=== PATIENT | male | born 1970 | race Caucasian/White ===

== ENCOUNTER → 2023-04-24 08:45 | Outpatient (BNVA) | payer OTHER, SELFPAY | PROVIDERS: Referring Provider Nurse Practitioner; Visit Provider Orthopaedic Surgery | DX: M75.82 Other shoulder lesions, left shoulder (principal) | CPT/HCPCS: 73030; 99203 ==

== ENCOUNTER → 2023-07-02 08:17 | Outpatient (BNVA) | payer OTHER, SELFPAY | PROVIDERS: Visit Provider Student in an Organized Health Care Education/Training Program | DX: M19.012 Primary osteoarthritis, left shoulder; M75.42 Impingement syndrome of left shoulder; Z98.890 Other specified postprocedural states | CPT/HCPCS: 20610; 73030; 99213; J3301 ==

== ENCOUNTER → 2023-09-05 10:01 | Outpatient (BNVA) | payer OTHER, SELFPAY | PROVIDERS: Visit Provider Physician Assistant | DX: M75.42 Impingement syndrome of left shoulder (principal); M75.22 Bicipital tendinitis, left shoulder | CPT/HCPCS: 99214 ==

== ENCOUNTER 2023-10-09 06:44 | Day surgery (SDC) | payer OTHER, SELFPAY ==
[2023-10-09] VITALS (17 sets, daily range): BP systolic 122–150; BP diastolic 75–103; PULSE 67–85; RESP 13–24; TEMP 36.1–36.7; O2SAT 90–98; BMI 39.0
--- NOTE | 2023-10-09 07:48 | ANES.PREANE2 ---
Pre-Anesthetic Assessment Height/Weight: Height 1.8 m Temp Pulse Resp BP Pulse Ox O2 Del Method 97.0 F L 81 18 147/103 96 Room Air 10/09/23 07:32 10/09/23 07:32 10/09/23 07:32 10/09/23 07:32 10/09/23 07:32 10/09/23 07:34 Operation Date: 10/09/23 08:55 Proposed Procedures p AC Joint Resection Acromioclavicular Joint Resection(Left) - Ty Nobles, DO s Bicep Tenotomy(Left) - Ty Marilyn, DO s Subacromial Decompression(Left) - Ty Nobles, DO Familial anesthetic complications: None Was Beta Chester taken within 24 hours: N/A Was Clonidine taken within 24 hours: N/A Last intake: Intake Last Liquid Date 10/08/23 Last Liquid Time 20:00 Last Solid Date 10/08/23 Last Solid Time 20:00 Social No alcohol and No tobacco Exam alert, oriented x 3, clear to auscultation bilaterally and regular rate & rhythm Airway Mallampati: Class III Dentition: chipped Metabolic Morbid Obesity Anesthetic Plan ASA status: 2 Anesthesia: General and Regional (specify below) Risk of > 500 ml blood loss (7ml/kg in children): No Medications/Allergies Home Medications Medication Instructions Recorded Confirmed Last Taken Type ibuprofen 200 mg capsule 200 mg PO Q6H PRN Pain 07/02/23 10/08/23 Unknown History allopurinol 300 mg PO DAILY 10/09/23 10/09/23 09/11/23 History Allergies Allergy/AdvReac Type Severity Reaction Status Date / Time barium dye Allergy ADR-Nausea Uncoded 10/09/23 07:27 [facility] Anesthesia Social History (Updated 09/05/23 @ 11:46 by Ana Guevara LPN) Smoking and tobacco/nicotine status: former use of tobacco/nicotine Alcohol intake: current Alcohol intake frequency: few times a month Data Anesthesia Cardiac Studies: No Data to Display
[2023-10-09] MEDS: sodium chloride 0.9% 1,000 ML 30 ML IV (07:53)
[2023-10-09] MEDS: ketorolac 30 mg/mL INJ IVP (07:55)
[2023-10-09] MEDS: acetaminophen 1,000 MG/100 ML PIGGYBACK 400 MG IV (07:56)
[2023-10-09] MEDS: scopolamine 1.5 Patch 1 PATCH TRANSDERMA (08:02)
--- NOTE | 2023-10-09 08:19 | ANES.PROC ---
Anesthesia Procedures Procedure/Date: 10/09/23 Nerve Block ^: Nerve Block 1: Main Anesthesia: general anesthesia Time Out Performed: Yes Consent: requested by attending/covering physician, from patient, from other, risks and benefits reviewed and patient agrees to proceed Nerve block location: interscalene (L) Anesthesia monitors applied: pulse oximetry, EKG and BP cuff Nerve block position: semi sitting Anesthetic Used: ropivicaine 0.5% (20 ml) and with decadron (3 mg) Ultrasound used to: recognize landmarks, visualize and ID brachial plexus, in supraclavicular region and visualize and ID interscalene groove Nerve Stimulator Used?: No Interscalene/Femoral BLK: 2 stimuplex 22 g needle used for position and inplane approach, visualize local anesthetic spread and no vascular puncture identified Patient Tolerated Procedure: well Complications: none
--- NOTE | 2023-10-09 08:19 | SUR.PREOP ---
LEFT INTERSCALENE NERVE BLOCK PERFORMED . PT ON MONITOR. TOLERATED PROCEDURE WELL.
--- NOTE | 2023-10-09 08:55 | P.HP_ITS ---
Same Day Surgery H&P Indication for Procedure/HPI DATE OF PROCEDURE: October 09, 2023 CHIEF COMPLAINT/INDICATIONFOR SURGICAL PROCEDURE: Left shoulder pain, AC joint arthritis, subacromial impingement, rotator cuff tendinitis PREOP DIAGNOSIS: Left shoulder AC joint arthritis, subacromial impingement rotator cuff tend PLANNED PROCEDURE: Operation Date: 10/09/23 08:55 Proposed Procedures p AC Joint Resection Acromioclavicular Joint Resection(Left) - Ty Marilyn, DO s Bicep Tenotomy(Left) - Ty Licking, DO s Subacromial Decompression(Left) - Ty Licking, DO Medications/Allergies* Home Medications Medication Instructions Recorded Confirmed Type ibuprofen 200 mg capsule 200 mg PO Q6H PRN Pain 07/02/23 10/08/23 History allopurinol 300 mg PO DAILY 10/09/23 10/09/23 History Allergies/Adverse Reactions Allergy/AdvReac Type Severity Reaction Status Date / Time barium dye Allergy ADR-Nausea Uncoded 10/09/23 07:27 Current Medications: Generic Name Dose Route Start Last Admin Trade Name Freq PRN Reason Stop Dose Admin Sodium Chloride 1,000 mls @ 30 mls/hr 10/09/23 07:30 10/09/23 07:53 Sodium Chloride 0.9% IV 10/10/23 07:29 30 mls/hr .Q24H LOREN Administration Pertinent History/Comorbid Conditions* Social History Smoking and tobacco/nicotine status: former use of tobacco/nicotine Alcohol intake: current Alcohol intake frequency: few times a month Pertinent Exam Findings alert, oriented x 3, operative site marked and procedure specific exam findings Left shoulder exam: ROM: decreased active ROM secondary to pain TTP AC joint, anterior and laterally. Tenderness over biceps tendon intertubercular groove With elbows at the side 5 out of 5 strength with internal and external rotation O'Briens: positive Jobes: pain with give way weakness Whitlock Impingement:positive Speeds Test:positive Crossover/Neers test: positive Recommendations Surgery/Procedure today Other Plans: Plan to proceed with left shoulder diagnostic shoulder diagnostic and surgical arthroscopy with acromioclavicular joint resection, biceps tenotomy versus tenodesis, subacromial decompression possible rotator cuff repair. Patient understands agrees with current plan. All questions answered. Coding Level of Care Code Acute Code for Chg Fwd Diagnoses
[2023-10-09] MEDS: ceFAZolin 2,000 MG in sodium chloride 0.9% (plus) 50 ML 100 MG IV (10:15)
--- NOTE | 2023-10-09 11:40 | ANE.PACU2 ---
Inpatient post-anesthesia follow up: Airway intact: Yes Vital signs: Temperature 97.6 F Pulse Rate 83 Respiratory Rate 16 Blood Pressure 138/85 Pulse Oximetry 95 Oxygen Delivery Me thod Nasal Cannula Oxygen Flow Rate 3 Fraction of Inspir ed Oxygen Hydration adequate: Yes Nausea and vomiting: No Pain level: 1 Mental status: Baseline
--- NOTE | 2023-10-09 12:08 | W.PM.BPON ---
Date of Procedure: 10/09/2023 Surgeon: Ty Sanders DO Patient Accounts Specialist(s): Juma Sanders PA-C Procedure(s) performed: Left shoulder diagnostic and surgical arthroscopy biceps tenotomy Left shoulder diagnostic and surgical arthroscopy rotator cuff repair (medium) Left shoulder diagnostic and surgical arthroscopy labral debridement Left shoulder diagnostic and surgical arthroscopy subacromial decompression (bursectomy and acromioplasty) Left shoulder diagnostic and surgical arthroscopy AC joint resection (distal clavicle excision) Findings of the procedure(s): Patient a Underwent left shoulder diagnostic and surgical arthroscopy found to have him size rotator cuff tear patient underwent left shoulder diagnostic and surgical arthroscopy and procedure went as planned without any issues or complications Estimated blood loss: 10 cc Specimen(s) removed: None Post-operative diagnosis: Left shoulder rotator cuff tear, bicep tendon tear/labral tearing, AC joint arthritis, subacromial impingement
--- NOTE | 2023-10-09 12:11 | P.OP_ITS ---
Operative Report Date of procedure: October 09, 2023 Surgeon: Ty Sanders DO Podiatrist Orthopedic: Juma Sanders PA-C: PA was necessary for assistance in this case with instrumentation arm positioning as well as assistance with rotator cuff repair and instrumentation and implants, closing as well as dressing and sling application Procedure: Preoperative diagnosis: Left shoulder pain Left shoulder AC joint arthritis Left shoulder rotator cuff tendinitis/impingement syndrome Post-op diagnosis:? Left?shoulder?labral tear Left?shoulder?biceps tendon tear Left?shoulder?rotator cuff tear Left?shoulder?AC joint arthritis Left?shoulder?subacromial bursitis/impingement Procedure done: Left?shoulder?diagnostic and surgical arthroscopy with arthroscopic rotator cuff repair(medium) Left?shoulder?diagnostic and surgical arthroscopy biceps tenotomy Left?shoulder?diagnostic and surgical arthroscopy labral debridement Left?shoulder?diagnostic and surgical arthroscopy acromioclavicular joint resection Left?shoulder?diagnostic and surgical arthroscopy subacromial decompression (acromioplasty and bursectomy) Surgeon: Ty Sanders DO Estimated blood loss: [10]mL IV fluids: See anesthesia record Implants: Arthrex 4.75 swivel lock x2 Arthrex?scorpion and suture tape Complications: None Condition: stable Disposition: same day Brief History: Patient been seen and worked up in the outpatient setting for Left?shoulder?pain.? Pt had an MRI Showed AC joint arthritis, distal supraspinatus tendon tendinosis. Patient's failed conservative treatment and has weakness. Patient's failed therapy and cortisone injection.? We talked about treatment options far as nonoperative and operative intervention..? We talked about risk benefits complication alternatives surgical nonsurgical treatment options.? Understanding risk of surgery pt agrees to proceed with surgical intervention.? All questions have been answered at this time.? Patient elects proceed with surgery and consent obtained in office. Procedure: Patient seen evaluated in the preoperative holding area.? Consent reviewed and signed with patient.? Once again reviewed patient's MRI results as well as? planned surgical intervention.? Correct extremity marked.? Patient seen evaluated by anesthesia department received regional anesthesia.? Once ready for surgery was taken back to the operative suite.? Patient then subsequently underwent anesthesia per the anesthesia department was transported onto the OR table.? Patient was then placed into a lateral decubitus position with a beanbag and was appropriately secured to the bed.? All bony prominences well-padded.? Patient then had the Left upper extremity was then prepped and draped in standard orthopedic fashion.? Patient received appropriate preoperative antibiotics.? Final timeout performed. The Left upper extremity was then held in hanging from traction utilizing sterile technique.? Next started with standard diagnostic and surgical arth roscopy with posterior portal position introduced arthroscope into the glenohumeral joint.? Visualized the glenohumeral joint I then introduced a spinal needle within the rotator cuff interval to confirm appropriate anterior portal placement.? Once this was confirmed I then made my small incision and then introduced my arthroscopic shaver into the glenohumeral joint.? After thorough debridement was clearly evident patient had a significant erythema as well as positive liftoff sign of the biceps anchor and biceps tendon tear as it was pulled within the joint.? Decision at this time was made to perform a biceps tenotomy.? Introduced a thermal wand and a biceps tenotomy was performed to completion With appropriate release.? Next I evaluated the subscapularis tendon which was intact and no evidence of tear. ?Next there was significant labral tearing at biceps anchor and circumferential.? ? I then subsequently utilized a a arthroscopic shaver and thermal wand to perform a labral debridement.? This point time I then visualized the glenohumeral joint.? The glenohumeral joint was found to have grade 1-2? chondromalacia throughout.? Infrapatellar pouch was free of loose bodies from viewing the posterior portal.? Next a visualized the rotator cuff superiorly and there was found to be a full-thickness supraspinatus anterior portion rotator cuff tear retracted to the glenohumeral joint. I utilized a spinal needle to karolina this location.? ?This completed my work within the glenohumeral joint all fluid was suctioned free of the joint.? ?Next I reintroduced the arthroscope posteriorly.? And went to the subacromial space.? I established my lateral working portal at the site of which my spinal needle was marking of the rotator cuff tear.? Thermal wand was then introduced laterally and then I subsequently performed extensive bursectomy of the subacromial space.? Patient had a large anterior bone spur.? At this point time I proceeded with my AC joint resection thermal wand was used and track to the anterior edge of the acromion and then tracked all the way to the AC joint.? Once identified the AC joint this was very arthritic in nature.? Thermal wand was placed anteriorly to establish appropriate plane for AC joint resection.? Once appropriate margins and anterior inferior and anterior capsule was released I then introduced arthroscopic shaver and a bur and performed AC joint resection of both the acromion to cope plane at the AC joint and a distal clavicle resection was then performed totaling 1 cm in size and was confirmed.? This completed my AC joint resection and I then introduced the arthroscopic shaver laterally while continuing to view posteriorly.? I then performed an acromioplasty to complete my subacromial decompression prior to fixing the rotator cuff tear.? Next the arthroscopic shaver was then used previous spinal needle spot that is marked the full-thickness tear.? Given the medium size I planned for a single medial row and single lateral row repair configuration. .? At this point in time and then introduced a shaver to debride the rotator cuff footprint and decorticate the footprint in preparation for repair, next I marked by swivel lock position. I made accessory portal to have appropriate man's angle directly perpendicular on the medial footprint just off the articular margin which had been decorticated and prepped, a 4.75 mm Arthrex swivel lock loaded anchor with suture tape and FiberWire was then impacted and had excellent fixation. I then individually passed to suture tapes and 2 FiberWire through the rotator cuff from anterior to posterior fashion these were all subsequently then loaded fiber tape was then loaded into a 4.75 swivel lock I then subsequently punched and then subsequently placement 4.75 swivel lock while maintaining appropriate tension and repair of rotator cuff and this was advanced with excellent fixation I then had a final confirmation of appropriate repair of the supraspinatus rotator cuff tendon tear.? Sutures were then cut with an arthroscopic suture cutter and subsequently evaluated the rotator cuff repair.? Repair was found to be satisfactory?shoulder?was taken through range of motion and the repair moved as a unit with no evidence of loss of fixation. ?I then switched the arthroscope to the lateral portal to confirm this tension- free repair.? I took the?shoulder?through range of motion and the rotator cuff repair was stable and moved as a unit. ?Next I then introduced the arthroscopic shaver posteriorly to complete my subacromial decompression appropriate complaining all the way up to the lateral edge of the acromion.? This completed the surgery.? All fluid was suctioned from the?shoulder.? All instruments were removed.? The lateral incision was then closed with nylon stitches.? As well as the portal sites closed with portal nylon stitches.? Xeroform 4 x 4's ABD and tape was then applied to the Left?shoulder?and was placed into a?shoulder?abduction pillow sling for rotator cuff repair.? Patient was then awakened from anesthesia and then taken back to PACU in stable condition.? Patient tolerated procedure without any issues. Disposition: Patient taken back in stable condition recovering well.? Dressings on in place clean dry and intact.? Will be nonweightbearing to the Left upper extremity.? Follow rotator cuff repair protocol.? Patient to follow-up with me in the office in 2 weeks.? Patient will receive appropriate discharge instruction as well as pain medication postoperatively.? All questions answered.? We will contact the office for any questions or concerns.
--- NOTE | 2023-10-09 12:45 | PM.PACU ---
PACU note Narrative: Patient is a 53-year-old male that just underwent a left shoulder surgical diagnostic arthroscopy procedure. Patient transferred to PACU in stable condition. Pain is well controlled. shoulder Dressing on , dry and in place. Patient's operative arm is in a shoulder immobilizer. Patient's fingers are warm with good perfusion. Normal cap refill under 2 seconds. Unable to assess further range of motion in arm due to sling. Unable to assess sensation or motor due to residual localized anesthetic. Exam: unarousable Disposition: discharged
--- NOTE | 2023-10-09 13:03 | PC.NURSE ---
1302 - nasal trumpet removed - simple mask at [address]
--- NOTE | 2023-10-09 13:24 | PC.NURSE ---
1316 - pt complaining of mid sternal chest pain of 05/04 - notified Dr Falk - 1521 - Dr Falk at bedside - new orders rec'd - RT notified of need for EKG
--- NOTE | 2023-10-09 13:32 | PC.NURSE ---
1331 - rt at side to do ekg - pt continues to deny chest pain at present time
--- NOTE | 2023-10-09 13:33 | ECG_ITS ---
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 Measurements Intervals [place] Rate: 80 P: -20 ID: 162 QRS: 91 QRSD: 102 T: 4 QT: 385 QTc: 445 Interpretive Statements SINUS RHYTHM WITH OCCASIONAL VENTRICULAR PREMATURE COMPLEXES BORDERLINE RIGHT AXIS DEVIATION [QRS AXIS > 90] POSSIBLE INFERIOR MYOCARDIAL INFARCTION , PROBABLY OLD [30 ms Q WAVE IN II/aVF] No previous ECG available for comparison Electronically Signed On 10-09-2023 15:12:07 SALES DEVELOPMENT REPRESENTATIVE by Jose Pang M.D. [id number]
--- NOTE | 2023-10-09 13:36 | PC.NURSE ---
ekg results called to Dr Dileep LINDSAY to move pt to phase 2
== END 2023-10-09 15:00 | disposition home or self-care (01) ==
PROVIDERS: PCP Nurse Practitioner; Visit Provider Student in an Organized Health Care Education/Training Program
PROC: 0RSH0ZZ Reposition Left Acromioclavicular Joint, Open Approach (ICD-10-PCS; CPT 29824; principal; 2023-10-09 08:55)
PROC: (CPT 23405; 2023-10-09 08:55)
PROC: (CPT 29826; 2023-10-09 08:55)
PROC: 0LQ24ZZ Repair Left Shoulder Tendon, Percutaneous Endoscopic Approach (ICD-10-PCS; CPT 29827; 2023-10-09 08:55)
DX: S43.402A Unspecified sprain of left shoulder joint, initial encounter (principal); S46.112A Strain of muscle, fascia and tendon of long head of biceps, left arm, initial encounter; X58.XXXA Exposure to other specified factors, initial encounter; M75.102 Unspecified rotator cuff tear or rupture of left shoulder, not specified as traumatic; M19.012 Primary osteoarthritis, left shoulder; M25.812 Other specified joint disorders, left shoulder; Z87.891 Personal history of nicotine dependence
CPT/HCPCS: 29824; 29826; 29827; 29828; 93005; C1713; J0131; J0690; J1100; J1170; J1885; J2250; J2405; J2704; J2710; J2795; J3010; J3490; J7030

== ENCOUNTER → 2023-10-29 09:29 | Outpatient (BNVA) | payer OTHER, SELFPAY | PROVIDERS: PCP Nurse Practitioner; Visit Provider Student in an Organized Health Care Education/Training Program | DX: Z98.890 Other specified postprocedural states; M25.512 Pain in left shoulder | CPT/HCPCS: 73030; 99024 ==

== ENCOUNTER → 2023-11-26 10:26 | Outpatient (BNVA) | payer OTHER, SELFPAY | PROVIDERS: PCP Nurse Practitioner; Visit Provider Student in an Organized Health Care Education/Training Program | DX: Z98.890 Other specified postprocedural states (principal) | CPT/HCPCS: 99024; 99213 ==

== ENCOUNTER 2024-02-18 15:07 | Emergency (ER) | payer OTHER, SELFPAY ==
[2024-02-18 15:26] VITALS: BP 157/82; PULSE 98; RESP 16; TEMP 36.4; O2SAT 97; BMI 37.0
--- NOTE | 2024-02-18 15:29 | XR_ITS ---
WS: [id number] Exam: XR knee LT 3V* [id number] Date/Time of Exam: 02/18/2024 3:32 PM Reason For Exam: pain No fracture or dislocation. Spurring of the tibial spines and posterior patella. No joint effusion id entified. Mild degenerative narrowing of the medial joint compartment. IMPRESSION: 1. Degenerative changes noted. 2. No fracture or joint effusion.
--- NOTE | 2024-02-18 15:30 | ED_ITS ---
HPI - Extremity Problem General: Chief complaint: Extremity Problem,Nontraumatic Stated complaint: left knee pain Time Seen by Provider: 02/18/24 15:09 Source: patient Mode of arrival: ambulatory (with use of a cane) Limitations: no limitations History of Present Illness: Patient is a 53-year-old male who presents to the ED today with a complaint of left knee pain and swelling. Patient states he said pain to the posterior aspect of his knee approximately 3 weeks and feels like the area is swollen. He states just recently he began feeling like the pain moved anteriorly and feels like it is swollen as well. No known injury or trauma. States he is ambulatory with the help of his cane. Patient underwent surgery for his shoulder a few months ago and had a ortho follow-up today. He states he has never spoke to them in regards to his knee stating I figured I had to have [facility] . Denies SOB/chest pain. MD Complaint: joint swelling and joint pain Onset (ago): week(s) Pain Consistency: constant Location: left and lower extremity Radiation: none Relieving factors: immobilization Exacerbating factors: range of motion, weight bearing and walking Associated symptoms: Reports no associated symptoms; Deny chest pain or fever(s) Review of Systems Const: Denies: fever(s) Card: Denies: chest pain Resp: Denies: dyspnea Musc: Reports: joint pain (L knee) and joint swelling (L knee); Denies: joint redness or joint warmth Neuro: Reports: difficulty walking (secondary to L knee pain); Denies: numbness in extremities, weakness in extremities or sensory changes [facility] ED PFSH: Social History Smoking and tobacco/nicotine status: former use of tobacco/nicotine Alcohol intake: current Alcohol intake frequency: few times a month Physical Exam Const: COMMON NORMALS: no acute distress, patient oriented x3, no limitations, alert and well nourished GENERAL APPEARANCE: cooperative NUTRITIONAL APPEARANCE: overweight Resp: COMMON NORMALS: normal respiratory effort Cardio: COMMON NORMALS: regular rate and regular rhythm RATE: regular rate RHYTHM: regular rhythm Extremity: COMMON NORMALS: capillary refill normal and no calf tenderness NARRATIVE EXTREMITY EXAM: chronic bilateral symmetrical edema-wearing compression stockings LEFT LOWER EXTREMITY: Yes knee joint (TTP/swelling noted posteriorly) Left knee: Yes ROM (fairly normal ROM apart from some limitations secondary to swelling) and Yes neurovascular exam (normal) Neuro: COMMON NORMALS: patient oriented x3, moves all extremities, no focal motor deficits and no sensory deficits noted SENSORIUM/ORIENTATION: Yes alert Skin: COMMON NORMALS: no rashes or lesions noted GENERAL SKIN EXAM: no rashes or lesions noted Course Vital Signs: Vital signs: Vital Signs Temperature 97.6 F 02/18/24 15:26 Pulse Rate 98 02/18/24 15:26 Respiratory Rate 16 02/18/24 15:26 Blood Pressure 157/82 02/18/24 15:26 Pulse Oximetry 97 02/18/24 15:26 Oxygen Delivery Me thod Room Air 02/18/24 15:26 MDM - Extremity (Nontraumatic) Medical Decision Making XR showing degenerative changes. Prelim report from maintenance technician 2nd shift negative for Ochoa's cyst/DVT. Patient will be given steroids and recommend [facility] and management which could include physical therapy and/or MRI. Medical Records I reviewed the patient's medical records. All radiology interpretation(s) finalized by discharge Discharge Plan Discharge Patient Disposition: Home Clinical Impression: Left knee pain Qualifiers: Chronicity: acute Qualified Code(s): M25.562 - Pain in left knee Condition: Stable Prescriptions: New prednisone 10 mg tablet 10 mg PO DAILY 6 Days Qty: 20 0RF Rx Instructions: Take 5 tabs on day 1-2, 4 tabs on day 3, 3 tabs on day 4, 2 tabs on day 5, and 1 tab on day 6 No Action ibuprofen 200 mg capsule 200 mg PO Q6H PRN (Reason: Pain) allopurinol tablet 300 mg PO DAILY Discharge Orders: Discharge ED (Routine); Ordered 02/18/24 Ordered By: Viktoria Easton Referrals: Kimberlee Davila FNP [Primary Care Provider] - Activity Restrictions/Additional Instructions: As we discussed please [facility] for [facility] and management of your [facility] pain. Coding Level of Care Code ED Leather Dresser for Terence Villanueva
--- NOTE | 2024-02-18 15:43 | USR_ITS ---
PROCEDURE INFORMATION: Exam: US Duplex Left Lower Extremity Veins, Limited Exam date and time: 02/18/2024 4:03 PM Age: 53 years old Clinical indication: Pain; Leg, lower; Left; Additional info: Posterior knee pain; Swelling; R/O dvt and bakers TECHNIQUE: Imaging protocol: Real-time duplex ultrasound of the left extremity with 2-D rivera scale, color Doppler flow and spectral waveform analysis including responses to compression and other maneuvers (when performed) with image documentation. Limited exam focused on the left lower extremity veins. COMPARISON: CR XR knee LT 3V* [id number] 02/18/2024 3:36 PM FINDINGS: Left deep veins: Unremarkable. The common femoral, femoral, proximal profunda femoral, popliteal, posterior tibial and peroneal veins are patent without thrombus. Normal compressibility, augmentation response and Doppler waveforms. Superficial veins: Greater saphenous vein at the saphenofemoral junction is patent without thrombus. Soft tissues: Unremarkable. US/[place] [id number] IMPRESSION: No sonographic evidence of deep vein thrombosis.
== END 2024-02-18 16:39 | disposition home or self-care (01) ==
PROVIDERS: Emergency Provider Physician Assistant; PCP Nurse Practitioner
DX: M17.12 Unilateral primary osteoarthritis, left knee (principal); M25.562 Pain in left knee; Z98.890 Other specified postprocedural states; Z87.891 Personal history of nicotine dependence
CPT/HCPCS: 73562; 93971; 99213; 99284

== ENCOUNTER 2024-02-20 15:06 | Emergency (ER) | payer OTHER, SELFPAY ==
[2024-02-20] VITALS (7 sets, daily range): BP systolic 132–157; BP diastolic 79–86; PULSE 89–99; RESP 16; TEMP 36.4; O2SAT 95–98
--- NOTE | 2024-02-20 15:25 | ECG_ITS ---
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 Measurements Intervals [place] Rate: 90 P: 57 CT: 128 QRS: 90 QRSD: 102 T: -17 QT: 356 QTc: 436 Interpretive Statements SINUS RHYTHM NONSPECIFIC ST & T-WAVE ABNORMALITY Compared to ECG 10/09/2023 13:33:46 T-wave abnormality now present Ventricular premature complex(es) no longer present Myocardial infarct finding no longer present Electronically Signed On 02-20-2024 16:13:25 CDT by Thomas Kelly M.D. [id number]
--- NOTE | 2024-02-20 15:25 | XRR_ITS ---
PROCEDURE INFORMATION: Exam: XR Chest Exam date and time: 02/20/2024 3:56 PM Age: 53 years old Clinical indication: Pain; Angina pectoris; Additional info: Cp TECHNIQUE: Imaging protocol: Radiologic exam of the chest. Views: 1 view. COMPARISON: CR XR shoulder LT min 2V* [id number] 10/29/2023 9:44 AM FINDINGS: Lungs: Unremarkable. No consolidation. Pleural spaces: Unremarkable. No pleural effusion. No pneumothorax. Heart/Mediastinum: Unremarkable. No cardiomegaly. Bones/joints: Unremarkable. XR/XR chest 1V portable [id number] IMPRESSION: No acute findings.
--- NOTE | 2024-02-20 15:36 | ED_ITS ---
HPI - Chest Pain 2 General: Chief Complaint: Chest Pain Stated Complaint: chest pains Time Seen by Provider: 02/20/24 15:33 History of Present Illness: 53-year-old male with a history of gout and obesity who presents the emergency room from the [place] clinic with shortness of breath and some chest symptoms. He says this has been going off and on for about a month. He says can be somewhat exertional. He has no history of hypertension. No diabetes. No heart disease. His clinic provider was concerned that he might have a heart blockage so sent him to the emergency room. No cough. No edema. No abdominal pain. No nausea or vomiting. Review of Systems 2 Narrative: Constitutional symptoms: Negative except as documented in HPI. Skin symptoms: Negative except as documented in HPI. Eye symptoms: Negative except as documented in HPI. ENMT symptoms: Negative except as documented in HPI. Respiratory symptoms: Negative except as documented in HPI. Cardiovascular symptoms: Negative except as documented in HPI. Gastrointestinal symptoms: Negative except as documented in HPI. Genitourinary symptoms: Negative except as documented in HPI. Musculoskeletal symptoms: Negative except as documented in HPI. Neurologic symptoms: Negative except as documented in HPI. Psychiatric symptoms: Negative except as documented in HPI. Endocrine symptoms: Negative except as documented in HPI. PFSH ED 2 PFSH: Social History Smoking and tobacco/nicotine status: former use of tobacco/nicotine Alcohol intake: current Alcohol intake frequency: few times a month Physical Exam 2 Narrative: EXAM NARRATIVE: General: Alert, no acute distress. Skin: Warm, dry. Head: Normocephalic, atraumatic. Neck: Supple, trachea midline. Eye: Extraocular movements are intact. Ears, nose, mouth and throat: mucosa moist. Cardiovascular: Regular, Normal peripheral perfusion. Respiratory: Lungs are clear to auscultation, respirations are non-labored, breath sounds are equal, Symmetrical chest wall expansion. Gastrointestinal: Soft, Nontender, Non distended, Normal bowel sounds. Musculoskeletal: Normal ROM, no deformity. Neurological: Alert and oriented, No focal neurological deficit observed. Psychiatric: Cooperative, appropriate mood & affect. Course 2 Vital Signs: Vital signs: Vital Signs Temperature 97.6 F 02/20/24 15:11 Pulse Rate 93 02/20/24 15:40 Respiratory Rate 16 02/20/24 15:11 Blood Pressure 132/86 02/20/24 15:40 Pulse Oximetry 98 02/20/24 15:43 Oxygen Delivery Me thod Room Air 02/20/24 15:43 MDM - Chest Pain Medical Decision Making Differential diagnosis for patient with chest pain includes but is not limited to and based on the above HPI, review of systems and physical exam: Pneumonia. unstable angina. angina. Acute coronary syndrome / SC. Pulmonary embolism. Costochondritis / musculoskeletal. Pleurisy. Pericarditis. Esophageal spasm. Pancreatis. Cholecystitis. Workup: Lab work, chest X-ray and EKG ordered to evaluate, rule in and rule out above pathologies. No leukocytosis. No anemia. Patient's glucose is elevated at 246. Recommend he follow-up with his primary. BUN/creatinine are 17 and 1.1 Lab Review: Laboratory results were reviewed and interpreted by myself the emergency room physician. EKG: Time 1434 rate 86 occasional PVCs , normal sinus rhythm, some T wave depression in the inferior leads, normal GA & QRS intervals, This was reviewed and interpreted by myself the ER physician I reviewed this EKG that was done in clinic earlier. Time of review was 1535. EKG: Time 1507 p.m. rate 90 normal sinus rhythm, nonspecific ST-T changes, no ectopy, normal GA & QRS intervals, This was reviewed and interpreted by myself the ER physician. I initially reviewed this EKG at 1510 while patient was in the waiting room. Chest x-ray: No acute process. No infiltrate. No pneumothorax. No cardiomegaly. This was reviewed and interpreted by myself the ER physician. Reexamination: Patient remained stable. No increased work of breathing. No further chest pain. No abdominal pain. No vomiting. Lab Data 02/20/24 15:37 02/20/24 15:37 Laboratory Results WBC 7.32 10^3/uL (3.29-11.43) 02/20/24 15:37 RBC 5.12 10^6/uL (3.85-5.65) 02/20/24 15:37 Hgb 14.70 g/dL (11.27-16.99) 02/20/24 15:37 Hct 43.4 % (37-53) 02/20/24 15:37 MCV 84.8 fl (82-101) 02/20/24 15:37 MCH 28.7 pg (27-33) 02/20/24 15:37 MCHC 33.9 g/dL (30-55) 02/20/24 15:37 RDW 14.1 % (12.1-15.1) 02/20/24 15:37 Plt Count 165 10^3/cmm (157-399) 02/20/24 15:37 MPV 11.5 fL (7.4-10.4) H 02/20/24 15:37 Neut % (Auto) 63.4 % 02/20/24 15:37 Lymph % (Auto) 27.7 % 02/20/24 15:37 [place] % (Auto) 6.7 % 02/20/24 15:37 Eos % (Auto) 1.5 % 02/20/24 15:37 Baso % (Auto) 0.4 % 02/20/24 15:37 Neut # (Auto) 4.64 10^3/uL (1.8-7.7) 02/20/24 15:37 Lymph # (Auto) 2.0 10^3/uL (0.8-4.8) 02/20/24 15:37 [place] # (Auto) 0.5 10^3/uL (0.2-0.9) 02/20/24 15:37 Eos # (Auto) 0.1 10^3/uL (0.0-0.8) 02/20/24 15:37 Baso # (Auto) 0.0 10^3/uL (0.0-0.1) 02/20/24 15:37 Nucleated RBC % (auto) 0 % 02/20/24 15:37 Nucleated RBCs # 0.0 /100WBC 02/20/24 15:37 Sodium 140 mmol/L (136-145) 02/20/24 15:37 Potassium 3.8 mmol/L (3.5-5.1) 02/20/24 15:37 Chloride 106 mmol/L (98-107) 02/20/24 15:37 Carbon Dioxide 24 mmol/L (22-29) 02/20/24 15:37 Anion Gap 13.8 (5-19) 02/20/24 15:37 BUN 17 mg/dL (6-20) 02/20/24 15:37 Creatinine 1.1 mg/dL (0.7-1.2) 02/20/24 15:37 GFR Calculation 69.8 mL/min (90-130) L 02/20/24 15:37 Glucose 246 mg/dL (65-115) H 02/20/24 15:37 Calculated Osmolality 300 mOsm/kg (285-295) H 02/20/24 15:37 Calcium 8.5 mg/dL (8.5-10.5) 02/20/24 15:37 Total Bilirubin 0.3 mg/dL (0.15-1.2) 02/20/24 15:37 AST 5 U/L (0-40) 02/20/24 15:37 ALT < 5 U/L (0-41) 02/20/24 15:37 Alkaline Phosphatase 102 U/L (40-130) 02/20/24 15:37 Troponin T Baseline 10 ng/L (0-15) 02/20/24 15:37 Total Protein 6.2 g/dL (6.6-8.7) L 02/20/24 15:37 Albumin 4.1 g/dL (3.5-5.2) 02/20/24 15:37 Globulin 2.1 g/dL (1.3-4.6) 02/20/24 15:37 Lipase 48 U/L (13-60) 02/20/24 15:37 All radiology interpretation(s) finalized by discharge Other Data Assessment and plan: Chest pain Hyperglycemia - Discharged home - Discussed findings and plan with patient. Answered any questions. - All laboratory values were reviewed and interpreted personally by myself, the ER physician - All imaging was reviewed and interpreted personally by myself, the ER physician. - Evaluation and treatment of this problem were appropriate in the emergency setting Discharge Plan Discharge Patient Disposition: Home Clinical Impression: Chest pain Condition: Stable Prescriptions: No Action ibuprofen 200 mg capsule 200 mg PO Q6H PRN (Reason: Pain) prednisone 10 mg tablet 10 mg PO DAILY 6 Days Qty: 20 0RF Rx Instructions: Take 5 tabs on day 1-2, 4 tabs on day 3, 3 tabs on day 4, 2 tabs on day 5, and 1 tab on day 6 allopurinol 200 mg Tablet 400 mg PO DAILY Discharge Orders: Discharge ED (Routine); Ordered 02/20/24 Ordered By: Ivory Urbano Referrals: Kimberlee Davila FNP [Primary Care Provider] - 4-7 days (You need to follow-up 1. For the chest pain you have been having and a possible stress test. 2. For your elevated blood sugars. You may have diabetes and might need treated for this. Addressed this with your primary care doctor. You have been screened and evaluated and felt safe for discharge. Health conditions do change or evolve sometimes and as such it is important that you follow up with your Primary Doctor to be re checked, 3-5 days is a general good time frame for follow up. You are always welcome to return to the ED for re assessment if your symptoms are worsening or you have new concerns) Discharge Diet: Diabetic Discharge Activity: Increase activity as tolerated Patient Instructions: Hyperglycemia, Noncardiac Chest Pain (ED) Coding Level of Care Code ED Behavioral Health Aide for Terence Villanueva
[2024-02-20 15:51] LABS: Basophils % 0.4 %; Eosinophils # 0.1 10^3/uL (0.0-0.8); Eosinophils % 1.5 %; Hematocrit 43.4 % (37-53); Lymphocytes % 27.7 %; Mean Corpuscular HGB Conc 33.9 g/dL (30-55); Mean Corpuscular Hemoglobin 28.7 pg (27-33); Mean Corpuscular Volume 84.8 fl (82-101); Mean Platelet Volume 11.5 fL (7.4-10.4); Monocytes # 0.5 10^3/uL (0.2-0.9); Monocytes % 6.7 %; Neutrophils # 4.64 10^3/uL (1.8-7.7); Neutrophils % 63.4 %; Nucleated Red Blood Cells % 0 %; Platelet Count 165 10^3/cmm (157-399); Red Blood Count 5.12 10^6/uL (3.85-5.65); Red Cell Distribution Width 14.1 % (12.1-15.1); White Blood Count 7.32 10^3/uL (3.29-11.43)
[2024-02-20 16:13] LABS: Albumin Level 4.1 g/dL (3.5-5.2); Alkaline Phosphatase 102 U/L (40-130); Blood Urea Nitrogen 17 mg/dL (6-20); Calcium 8.5 mg/dL (8.5-10.5); Carbon Dioxide 24 mmol/L (22-29); Chloride 106 mmol/L (98-107); Creatinine Clr Calc Pharmacy 104.4201; Globulin 2.1 g/dL (1.3-4.6); Glomerular Filtration Rate 69.8 mL/min (90-130); Glucose 246 mg/dL (65-115); Lipase 48 U/L (13-60); Osmolality Calculated 300 mOsm/kg (285-295); Sodium 140 mmol/L (136-145); Total Bilirubin 0.3 mg/dL (0.15-1.2); Total Protein 6.2 g/dL (6.6-8.7)
[2024-02-20 16:14] LABS: Troponin(5th) Baseline 10 ng/L (0-15)
[2024-02-20 16:27] LABS: Alanine Aminotransferase < 5 U/L (0-41); Aspartate Amino Transferase 5 U/L (0-40)
[2024-02-20 16:36] LABS: Anion Gap 13.8 (5-19); Potassium 3.8 mmol/L (3.5-5.1)
== END 2024-02-20 17:25 | disposition home or self-care (01) ==
PROVIDERS: Emergency Medicine; Emergency Provider Emergency Medicine; PCP Nurse Practitioner
DX: R07.9 Chest pain, unspecified (principal); Z87.891 Personal history of nicotine dependence
CPT/HCPCS: 71045; 80053; 83690; 84484; 85025; 93005; 99285

== ENCOUNTER → 2024-03-31 13:32 | Outpatient (BNVA) | payer OTHER, SELFPAY | PROVIDERS: PCP Nurse Practitioner; Visit Provider Physician Assistant | DX: Z98.890 Other specified postprocedural states (principal) | CPT/HCPCS: 99213 ==

== ENCOUNTER → 2024-04-02 08:38 | Outpatient (BNVA) | payer OTHER, SELFPAY | PROVIDERS: PCP Nurse Practitioner; Referring Provider Nurse Practitioner; Visit Provider Physician Assistant | DX: M17.12 Unilateral primary osteoarthritis, left knee | CPT/HCPCS: 20610; 73560; 73565; 99213; J3301 ==

== ENCOUNTER → 2024-05-27 08:56 | Outpatient (BNVA) | payer OTHER, SELFPAY | PROVIDERS: PCP Nurse Practitioner; Visit Provider Physician Assistant | DX: M25.552 Pain in left hip (principal); M54.16 Radiculopathy, lumbar region | CPT/HCPCS: 73502; 99213 ==

== ENCOUNTER → 2024-08-04 08:07 | Outpatient (BNVA) | payer OTHER, SELFPAY | PROVIDERS: PCP Nurse Practitioner; Visit Provider Student in an Organized Health Care Education/Training Program | DX: M54.16 Radiculopathy, lumbar region (principal); M25.552 Pain in left hip | CPT/HCPCS: 99214 ==

== ENCOUNTER → 2024-08-12 12:55 | Outpatient (BNVA) | payer OTHER, SELFPAY | PROVIDERS: PCP Nurse Practitioner; Referring Provider Nurse Practitioner; Visit Provider Surgery | DX: Z12.11 Encounter for screening for malignant neoplasm of colon (principal); R03.0 Elevated blood-pressure reading, without diagnosis of hypertension | CPT/HCPCS: 99203 ==

== ENCOUNTER 2024-09-10 07:04 | Day surgery (SDC) | payer OTHER, SELFPAY ==
[2024-09-10 07:17] VITALS: BP 140/87; PULSE 81; RESP 18; TEMP 36.1; O2SAT 96; BMI 34.8
[2024-09-10] MEDS: sodium chloride 0.9% 1,000 ML 30 ML IV (07:24)
--- NOTE | 2024-09-10 07:57 | W.PM.OPSUD ---
Surgery/Procedure H&P Update DATE OF PROCEDURE: September 10, 2024 DATE H&P PERFORMED: 08/12/24 H&P UPDATE INFORMATION: I have reviewed H&P completed within last 30 days, I have examined patient prior to procedure, No changes to prior documentation and H&P is in [facility] EMR on date indicated PLANNED PROCEDURE: Operation Date: 09/10/24 08:35 Proposed Procedures p Colonoscopy- 20008,G0121, Z12.11(Not Applicable) - Alton Clarke MD
--- NOTE | 2024-09-10 08:09 | ANES.PREANE2 ---
Pre-Anesthetic Assessment Height/Weight: Height 1.8 m Weight 113.398 kg Temp Pulse Resp BP Pulse Ox O2 Del Method 97 F L 81 18 140/87 96 Room Air 09/10/24 07:17 09/10/24 07:17 09/10/24 07:17 09/10/24 07:17 09/10/24 07:17 09/10/24 07:17 Preop Diagnosis: screening Operation Date: 09/10/24 08:35 Proposed Procedures p Colonoscopy- 84635,G0121, Z12.11(Not Applicable) - Alton Clarke MD Familial anesthetic complications: none Was Beta Chester taken within 24 hours: N/A Was Clonidine taken within 24 hours: N/A Last intake: Intake Last Liquid Date 09/09/24 Last Liquid Time 20:00 Last Solid Date 09/08/24 Last Solid Time 23:00 Social No alcohol and No tobacco Exam alert, oriented x 3, clear to auscultation bilaterally and regular rate & rhythm Airway Submandibular: within normal limits Cervical ROM: within normal limits Mallampati: Class II Dentition: full History/ROS No significant history except as noted Pulmonary None reported CV/HEM None reported None reported Hepatic None reported GI None reported Metabolic None reported Musc/skel None reported Neuropsych None reported Anesthetic Plan ASA status: 2 Anesthesia: MAC Risk of > 500 ml blood loss (7ml/kg in children): No Medications/Allergies Home Medications Medication Instructions Recorded Confirmed Last Taken Type ibuprofen 200 mg capsule 200 mg PO Q6H PRN Pain 07/02/23 09/08/24 09/08/24 History allopurinol 200 mg tablet 400 mg PO DAILY 02/20/24 09/08/24 09/08/24 History methocarbamol 750 mg tablet 750 mg PO TID PRN Muscle Spasm 09/08/24 09/08/24 09/08/24 History Allergies Allergy/AdvReac Type Severity Reaction Status Date / Time barium dye Allergy ADR-Nausea Uncoded 09/08/24 10:02 Current Medications Generic Name Dose Route Start Last Admin Trade Name Freq PRN Reason Stop Dose Admin Sodium Chloride 1,000 mls @ 30 mls/hr 09/10/24 07:15 09/10/24 07:24 Sodium Chloride 0.9% IV 30 mls/hr .Q24H LOREN Administration PFSH Anesthesia Social History Smoking and tobacco/nicotine status: former use of tobacco/nicotine Alcohol intake: current Alcohol intake frequency: few times a month Data Anesthesia Cardiac Studies: No Data to Display
[2024-09-10 09:02] VITALS: BP 129/85; PULSE 71; RESP 18; TEMP 36.2; O2SAT 97
[2024-09-10 09:12] VITALS: BP 116/87; PULSE 61; RESP 18; O2SAT 98
[2024-09-10 09:24] VITALS: BP 137/92; PULSE 63; RESP 18; O2SAT 99
--- NOTE | 2024-09-10 09:40 | ANE.PACU2 ---
Inpatient post-anesthesia follow up: Airway intact: Yes Vital signs: Temperature 97.2 F Pulse Rate 63 Respiratory Rate 18 Blood Pressure 137/92 Pulse Oximetry 99 Oxygen Delivery Me thod Room Air Oxygen Flow Rate Fraction of Inspir ed Oxygen Hydration adequate: Yes Nausea and vomiting: No Pain level: 1 Mental status: Baseline
== END 2024-09-10 09:40 | disposition home or self-care (01) ==
PROVIDERS: PCP Nurse Practitioner; Visit Provider Surgery
PROC: 0DJD8ZZ Inspection of Lower Intestinal Tract, Via Natural or Artificial Opening Endoscopic (ICD-10-PCS; CPT 45378; principal; 2024-09-10 08:35)
DX: Z12.11 Encounter for screening for malignant neoplasm of colon (principal); D12.3 Benign neoplasm of transverse colon; Z87.891 Personal history of nicotine dependence; R03.0 Elevated blood-pressure reading, without diagnosis of hypertension
CPT/HCPCS: 45380; 88305; J2704; J7030

== ENCOUNTER 2024-09-16 20:00 | Outpatient (CLI) | payer OTHER, SELFPAY | END 2024-09-16 20:01 | disposition home or self-care (01) | LOC: SLEEP 23:22 | PROVIDERS: PCP Nurse Practitioner; Visit Provider Nurse Practitioner | DX: G47.33 Obstructive sleep apnea (adult) (pediatric) (principal); G47.61 Periodic limb movement disorder | CPT/HCPCS: 95810 ==

== ENCOUNTER → 2024-09-17 07:40 | Outpatient (BNVA) | payer OTHER, SELFPAY | PROVIDERS: PCP Nurse Practitioner; Visit Provider Orthopaedic Surgery | DX: M54.9 Dorsalgia, unspecified (principal) | CPT/HCPCS: 36415; 72110; 80053; 81001; 85025; 99204 ==

== ENCOUNTER → 2024-09-23 11:19 | Outpatient (BNVA) | payer OTHER, SELFPAY | PROVIDERS: PCP Nurse Practitioner; Visit Provider Surgery | DX: Z09 Encounter for follow-up examination after completed treatment for conditions other than malignant neoplasm (principal) | CPT/HCPCS: 99212 ==

== ENCOUNTER 2024-10-02 07:15 | Day surgery (SDC) | payer OTHER, SELFPAY ==
[2024-10-02] VITALS (18 sets, daily range): BP systolic 109–155; BP diastolic 80–102; PULSE 79–98; RESP 9–18; TEMP 36.3–36.8; O2SAT 92–98
[2024-10-02] MEDS: sodium chloride 0.9% 1,000 ML 30 ML IV (07:38)
--- NOTE | 2024-10-02 08:16 | P.ANESASSM_ITS ---
Pre-Anesthetic Assessment Height/Weight: Height 1.8 m Weight 116.12 kg Temp Pulse Resp BP Pulse Ox O2 Del Method 97.3 F L 86 16 141/89 95 Room Air 10/02/24 07:35 10/02/24 07:35 10/02/24 07:35 10/02/24 07:35 10/02/24 07:35 10/02/24 07:35 Preop Diagnosis: Lumbar stenosis with neurogenic claudication Operation Date: 10/02/24 09:00 Proposed Procedures p Paddle Electrode Placement(Not Applicable) - Brayan Yap DO s Spinal Cord Stimulator Placement(Not Applicable) - Brayan Yap DO Familial anesthetic complications: None Was Beta Chester taken within 24 hours: N/A Was Clonidine taken within 24 hours: N/A Last intake: Intake Last Liquid Date 10/01/24 Last Liquid Time 23:30 Last Solid Date 10/01/24 Last Solid Time 21:00 Social No alcohol and No tobacco Exam alert, oriented x 3, clear to auscultation bilaterally and regular rate & rhythm Airway Mallampati: Class IV Dentition: chipped Metabolic Morbid Obesity Musc/[facility] gout Anesthetic Plan ASA status: 2 Anesthesia: General Risk of > 500 ml blood loss (7ml/kg in children): No Medications/Allergies Home Medications Medication Instructions Recorded Confirmed Last Taken Type ibuprofen 200 mg capsule 200 mg PO Q6H PRN Pain 07/02/23 10/01/24 09/17/24 History allopurinol 200 mg tablet 400 mg PO DAILY 02/20/24 10/01/24 09/17/24 History methocarbamol 750 mg tablet 750 mg PO TID PRN Muscle Spasm 09/08/24 10/01/24 09/17/24 History magnesium 200 mg tablet 200 mg PO DAILY 09/30/24 10/01/24 09/17/24 History sour powell extract 1,000 mg 1,000 mg PO DAILY 09/30/24 10/01/24 09/17/24 History capsule (Tart Powell Extract) turmeric (bulk) 95 % powder 1 ea miscellaneous DAILY 09/30/24 10/01/24 09/17/24 History (Curcumin) Allergies Allergy/AdvReac Type Severity Reaction Status Date / Time barium dye Allergy ADR-Nausea Uncoded 10/01/24 09:12 Current Medications Generic Name Dose Route Start Last Admin Trade Name Freq PRN Reason Stop Dose Admin Sodium Chloride 1,000 mls @ 30 mls/hr 10/02/24 07:30 10/02/24 07:38 Sodium Chloride 0.9% IV 10/03/24 07:29 30 mls/hr .Q24H LOREN Administration PFSH Anesthesia Social History Smoking and tobacco/nicotine status: never used tobacco/nicotine Alcohol intake: current Alcohol intake frequency: few times a month Data Anesthesia Cardiac Studies: No Data to Display
--- NOTE | 2024-10-02 08:43 | W.PM.OPSUD ---
Surgery/Procedure H&P Update DATE OF PROCEDURE: October 02, 2024 DATE H&P PERFORMED: 09/30/24 H&P UPDATE INFORMATION: I have reviewed H&P completed within last 30 days, I have examined patient prior to procedure and No changes to prior documentation PREOP DIAGNOSIS: Lumbar stenosis with neurogenic claudication PLANNED PROCEDURE: Operation Date: 10/02/24 09:00 Proposed Procedures p Paddle Electrode Placement(Not Applicable) - DO stephen Nguyen Spinal Cord Stimulator Placement(Not Applicable) - Brayan Yap DO
[2024-10-02] MEDS: ceFAZolin 2,000 mg SDV 2000 MG IVP (09:06)
[2024-10-02] MEDS: lidocaine-epi 1% 20 mL INJ INJECTION (10:06)
[2024-10-02] MEDS: vancomycin 1,000 MG SDV 1000 MG XX (10:15)
--- NOTE | 2024-10-02 11:08 | P.OP_ITS ---
Operative Report Date of procedure: October 02, 2024 Pre-op diagnosis: Lumbar stenosis with neurogenic claudication Post-op diagnosis: same Procedure done: 1. Placement of neurostimulator paddle with a laminectomy 2. Placement of neurostimulator generator Surgeon: Brayan Yap DO Estimated blood loss (mL): 25 Procedure: 1. Placement of neurostimulator paddle with a laminectomy 2. Placement of neurostimulator generator Patient is brought to the procedure after going anesthesia patient was placed in the prone position. All his impingement well-padded. Patient was prepped draped sterile fashion. Attention was first brought to identifying the T9-10 level. This is done under C-arm guidance. Skin incision made over the T9-10 level. Subperiosteal dissection was made out to the transverse processes of T9- T10. Spinous process was taken down. With a rongeur. Laminectomies performed the high-speed bur curved curette and Kerrison rongeur. The hockey-stick template was passed. And then the neurostimulator was passed up to the T8 level and part of T7. C-arm guidance ensured this was in appropriate position. Next tension was brought to making the battery pouch. This is done the left flank skin incision was made pocket was formed using a Bovie. The battery temp late was used and sure if it. Next the wire passer was passed from the battery pouch to the laminectomy site. The wires were then passed through the tube and brought into the battery pouch. The wires were then placed into the battery in appropriate positions. Was checked and felt to be working properly. Battery was then placed in the pocket wounds were then irrigated and closed in a layered fashion with 0 Vicryl 2-0 Vicryl and Monocryl suture. Sterile dressings were applied.
[2024-10-02] MEDS: fentaNYL 50 mcg/mL INJ 2mL IVP (11:34)
--- NOTE | 2024-10-02 13:05 | ANE.PACU2 ---
Inpatient post-anesthesia follow up: Airway intact: Yes Vital signs: Temperature 97.6 F Pulse Rate 87 Respiratory Rate 16 Blood Pressure 140/102 Pulse Oximetry 96 Oxygen Delivery Me thod Room Air Oxygen Flow Rate 2 Fraction of Inspir ed Oxygen Hydration adequate: Yes Nausea and vomiting: No Pain level: 1 Mental status: Baseline
--- NOTE | 2024-10-02 13:55 | XR_ITS ---
WS: [id number] XR lumbar spine 1V [id number] REASON FOR EXAM: or pic, stimulator FINDINGS: Placement of dorsal column stimulator at T8-T9 in the midline of the posterior thoracic spinal canal. XR/XR lumbar spine 1V [id number] IMPRESSION: Dorsal column stimulator placement as above.
== END 2024-10-02 13:08 | disposition home or self-care (01) ==
PROVIDERS: PCP Nurse Practitioner; Visit Provider Orthopaedic Surgery
PROC: (CPT 63664; principal; 2024-10-02 08:30)
PROC: (CPT 63685; 2024-10-02 08:30)
DX: M48.062 Spinal stenosis, lumbar region with neurogenic claudication (principal); E66.01 Morbid (severe) obesity due to excess calories; Z68.35 Body mass index [BMI] 35.0-35.9, adult
CPT/HCPCS: 63685; 63655; 72020; 76000; C1778; C1820; J0690; J1100; J2250; J2405; J2704; J3010; J3370; J3490; J7030

== ENCOUNTER → 2024-10-13 07:38 | Outpatient (BNVA) | payer OTHER, SELFPAY | PROVIDERS: PCP Nurse Practitioner; Visit Provider Orthopaedic Surgery | DX: Z48.89 Encounter for other specified surgical aftercare (principal) | CPT/HCPCS: 99024 ==

== ENCOUNTER → 2024-10-29 13:30 | Outpatient (BNVA) | payer OTHER, SELFPAY | PROVIDERS: PCP Nurse Practitioner; Visit Provider Orthopaedic Surgery | DX: M48.062 Spinal stenosis, lumbar region with neurogenic claudication (principal) | CPT/HCPCS: 99024 ==

== ENCOUNTER 2024-12-09 21:44 | Emergency (ER) | payer OTHER, SELFPAY ==
[2024-12-09 21:49] VITALS: BP 185/108; PULSE 85; RESP 16; TEMP 36.5; O2SAT 95; BMI 37.6
--- NOTE | 2024-12-09 22:54 | ED_ITS ---
HPI - Back Pain/Injury General: Chief Complaint: Back Pain/Injury Stated Complaint: back pain with stimulator leg pain left side Time Seen by Provider: 12/09/24 22:51 History of Present Illness: Presents to the ER complaining of left-sided low back pain radiating into his leg. Been going on for couple days. Back to work about 4 days ago. He did have a spinal cord stimulator placed by Dr. Marely andino in September. Patient denies any bowel or bladder incontinence or difficulties, nausea vomiting diarrhea, coughs colds fevers chills, no known injury, Related Data Home Medications Medication Instructions Recorded Confirmed ibuprofen 200 mg capsule 200 mg PO Q6H PRN Pain 07/02/23 10/29/24 allopurinol 200 mg tablet 400 mg PO DAILY 02/20/24 10/29/24 methocarbamol 750 mg tablet 750 mg PO TID PRN Muscle Spasm 09/08/24 10/29/24 magnesium 200 mg tablet 200 mg PO DAILY 09/30/24 10/29/24 sour powell extract 1,000 mg 1,000 mg PO DAILY 09/30/24 10/29/24 capsule (Tart Powell Extract) turmeric (bulk) 95 % powder 1 ea miscellaneous DAILY 09/30/24 10/29/24 (Curcumin) Previous Rx's Medication Instructions Recorded cyclobenzaprine 5 mg tablet 5 mg PO TID PRN muscle spasm #14 12/10/24 tabs meloxicam 7.5 mg tablet 7.5 mg PO .Twice daily #14 tabs 12/10/24 prednisone 50 mg tablet 50 mg PO DAILY #5 tabs 12/10/24 Allergies Allergy/AdvReac Type Severity Reaction Status Date / Time barium dye Allergy ADR-Nausea Uncoded 10/29/24 13:43 Review of Systems General: Reports: 10 or more systems reviewed and unremarkable except in HPI and below PFSH ED PFSH: Social History Smoking and tobacco/nicotine status: unknown if used tobacco/nicotine Alcohol intake: current Alcohol intake frequency: few times a month Physical Exam Const: COMMON NORMALS: no acute distress, average body habitus, patient oriented x3, no limitations, healthy appearing, alert and well nourished Neck/C-Spine: COMMON NORMALS: no JVD Chest: COMMONS NORMALS: normal inspection of the chest and normal palpation of entire chest wall Resp: COMMON NORMALS: normal respiratory effort, No retractions, No use of accessory muscles and clear to auscultation bilaterally AUSCULTATION: clear to auscultation bilaterally Cardio: COMMON NORMALS: no JVD, regular rate, regular rhythm, S1 normal heart sound present, S2 normal heart sound present, No gallops present (Cardio), No clicks present (Cardio), No murmurs present (Cardio) and No rub (Cardio) RATE: regular rate RHYTHM: regular rhythm HEART SOUNDS: S1 normal heart sound present and S2 normal heart sound present GI: COMMON NORMALS: Normal to inspection, nondistended, normoactive bowel sounds present, Soft to palpation, non-tender, No hepatosplenomegaly present and no masses PALPATION: Yes Soft to palpation and Yes No hepatosplenomegaly present Neuro: COMMON NORMALS: patient oriented x3 SENSORIUM/ORIENTATION: Yes alert Course Vital Signs: Vital signs: Vital Signs Temperature 97.7 F 12/09/24 21:49 Pulse Rate 85 12/09/24 21:49 Respiratory Rate 16 12/09/24 21:49 Blood Pressure 185/108 12/09/24 21:49 Pulse Oximetry 95 12/09/24 21:49 Oxygen Delivery Me thod Room Air 12/09/24 21:49 MDM - Back Pain/Injury Medical Decision Making Patient received 60 mg Toradol 60 mg Norflex IM and upon reassessment was found sleeping and snoring in no acute distress. Patient be discharged home. Medical Records I reviewed the patient's medical records. Labs I reviewed the patient's lab results. All radiology interpretation(s) finalized by discharge Discharge Plan Discharge Patient Disposition: Home Clinical Impression: Sciatica Qualifiers: Laterality: left Qualified Code(s): M54.32 - Sciatica, left side Condition: Stable Prescriptions: New meloxicam 7.5 mg tablet 7.5 mg PO .Twice daily Qty: 14 0RF prednisone 50 mg tablet 50 mg PO DAILY Qty: 5 0RF cyclobenzaprine 5 mg tablet 5 mg PO TID PRN (Reason: muscle spasm) Qty: 14 0RF No Action magnesium 200 mg tablet 200 mg PO DAILY Curcumin 95 % powder 1 ea miscellaneous DAILY Hold Instructions: Resume on 10/04/24. Tart Powell Extract 1,000 mg capsule 1,000 mg PO DAILY ibuprofen 200 mg capsule 200 mg PO Q6H PRN (Reason: Pain) Hold Instructions: Resume on 10/04/24. allopurinol 200 mg Tablet 400 mg PO DAILY methocarbamol 750 mg tablet 750 mg PO TID PRN (Reason: Muscle Spasm) Discharge Orders: Discharge ED (Routine); Ordered 12/10/24 Ordered By: Aamir Oden Referrals: Kimberlee Davila FNP [Primary Care Provider] - 1 week Patient Instructions: Lumbar Radiculopathy (ED) Activity Restrictions/Additional Instructions: You have been prescribed medicine for pain, inflammation, and muscle spasms. Please take it as directed. Please follow-up with your family practice physician within the next 7 days for further evaluation and treatment. Thank you for choosing [facility] for your healthcare needs today. Please realize that you were seen in the emergency department and that we are providing you with an emergency medical screening exam and this may not be a complete and all exclusive of all testing and/or medical workup we may need to determine your element or severity of your illness. It is very important that you follow-up as instructed with your primary care provider or specialist for the additional evaluation and to discuss your medical treatment plan. You may return to the emergency department should you have concerns or if your condition changes or worsens in any way. Coding Level of Care Code ED Auto Body Repair Teacher for Treence Villanueva
[2024-12-09] MEDS: ketorolac 60 mg/2 mL INJ IM (23:25)
[2024-12-09] MEDS: orphenadrine 30 mg/mL Inj 2 mL 60 MG IM (23:25)
[2024-12-10 01:02] VITALS: BP 144/89; PULSE 72; O2SAT 97
== END 2024-12-10 01:03 | disposition home or self-care (01) ==
PROVIDERS: Emergency Provider Emergency Medicine; PCP Nurse Practitioner
DX: M54.32 Sciatica, left side (principal)
CPT/HCPCS: 96372; 99284; J1885; J2360

== ENCOUNTER → 2024-12-17 09:19 | Outpatient (BNVA) | payer OTHER, SELFPAY | PROVIDERS: PCP Nurse Practitioner; Visit Provider Orthopaedic Surgery | DX: M48.062 Spinal stenosis, lumbar region with neurogenic claudication (principal) | CPT/HCPCS: 72100; 99024 ==

== ENCOUNTER 2024-12-23 07:43 | Outpatient (CLI) | payer OTHER, SELFPAY ==
--- NOTE | 2024-12-23 08:00 | MR_ITS ---
WS: [id number] MRI LUMBAR SPINE NONCONTRAST HISTORY:, Worsening pain after spinal cord stimulator. COMPARISON: 04/09/2023 TECHNIQUE: Sagittal and axial multisequence imaging is submitted. Disc space narrowing and disc bulging throughout the cervical and thoracic spine. Thecal sac is narro wed. Straightening of the normal lumbar lordosis. No fractures or marrow edema. Disc spaces are slightly narrowed and desiccated. Conus terminates normally at L1-2 disc level. T12-L1: Annular disc bulging with osteophytosis. Mild foraminal stenosis. L1-L2: Mild annular disc bulging with ligamentum flavum and facet arthritis. Osteophytosis contributi ng to mild subarticular recess and foraminal stenosis. L2-L3: Diffuse annular disc bulging with osteophytic ridging. Ligamentum flavum and facet arthritis. Mild central, subarticular recess and foraminal stenosis, LEFT greater than RIGHT. L3-L4: Diffuse marked annular disc bulging with fissures. Central disc protrusion and small bilateral foraminal disc osteophyte protrusions. Moderate central, subarticular recess and foraminal stenosis. There is disc contacting the traversing L4 nerve roots. Slight displacement of the exiting L3 nerve roots. L4-L5: Marked annular disc bulging asymmetric to the RIGHT. Disc extends into the RIGHT subarticular recess displacing the RIGHT L5 nerve root posteriorly. Central disc protrusion with fissures. Additio nal disc osteophyte extending into the RIGHT foramen. Moderate to severe central with subarticular re cess and foraminal stenosis, RIGHT greater than LEFT. L5-S1: Central disc protrusion contacts the S1 nerve roots. Annular disc bulging. Moderate-sized RIGH T foraminal disc osteophyte with contact on the exiting RIGHT L5 nerve root with displacement. Lesser contact on the LEFT exiting L5 nerve root. Mild central, subarticular recess with severe RIGHT and m oderate to severe LEFT foraminal stenosis. Paravertebral soft tissues are normal. MR/MR lumbar spine wo con* [id number] IMPRESSION: 1. No acute lumbar spine fracture. 2. The spaces are mildly narrowed and desiccated with osteophytic ridging at a ll levels. No significant progression of degenerative disc disease L5-S1. 3. L5-S1: Central disc protrusion contacting the S1 nerve roots. Moderate size RIGHT foraminal disc protrusion contacting the exiting RIGHT L5 nerve root. Se corazon RIGHT and moderate to severe LEFT foraminal stenosis due to disc and osteo phyte disease. 4. L4-5: Central disc protrusion with additional disc osteophyte complexes in the foramina. Moderate to severe central with bilateral subarticular recess and foraminal stenosis, RIGHT greater than LEFT. 5. L3-4: Central disc protrusion and small bilateral foraminal disc osteophyte complexes. Moderate central, subarticular recess and foraminal stenosis. Disc contacts the traversing L4 nerve roots. 6. Mild foraminal and subarticular recess stenosis at L1-2. 7. L2-3: Mild central, subarticular recess and foraminal stenosis, LEFT greate r than RIGHT. 8. As compared to the prior study from 2022 there has been mild progression ov erall of the stenoses and degenerative changes.
== END 2024-12-23 07:44 | disposition home or self-care (01) ==
LOC: RAD 07:43
PROVIDERS: PCP Nurse Practitioner; Visit Provider Orthopaedic Surgery
DX: M48.062 Spinal stenosis, lumbar region with neurogenic claudication (principal); M54.16 Radiculopathy, lumbar region; M51.27 Other intervertebral disc displacement, lumbosacral region; M48.07 Spinal stenosis, lumbosacral region; M25.78 Osteophyte, vertebrae; R93.7 Abnormal findings on diagnostic imaging of other parts of musculoskeletal system; M51.26 Other intervertebral disc displacement, lumbar region; M48.061 Spinal stenosis, lumbar region without neurogenic claudication; M50.30 Other cervical disc degeneration, unspecified cervical region; M48.02 Spinal stenosis, cervical region; M51.34 Other intervertebral disc degeneration, thoracic region; M48.04 Spinal stenosis, thoracic region; M51.35 Other intervertebral disc degeneration, thoracolumbar region; M48.05 Spinal stenosis, thoracolumbar region; M47.896 Other spondylosis, lumbar region; M51.369 Other intervertebral disc degeneration, lumbar region without mention of lumbar back pain or lower extremity pain; M51.379 Other intervertebral disc degeneration, lumbosacral region without mention of lumbar back pain or lower extremity pain
CPT/HCPCS: 72148

== ENCOUNTER → 2024-12-31 07:41 | Outpatient (BNVA) | payer OTHER, SELFPAY | PROVIDERS: PCP Nurse Practitioner; Visit Provider Orthopaedic Surgery | DX: M48.062 Spinal stenosis, lumbar region with neurogenic claudication (principal) | CPT/HCPCS: 36415; 80053; 81001; 85025; 99214 ==

== ENCOUNTER 2025-01-27 20:00 | Outpatient (CLI) | payer OTHER, SELFPAY | END 2025-01-27 20:01 | disposition home or self-care (01) | LOC: SLEEP 23:22 | PROVIDERS: PCP Nurse Practitioner; Visit Provider Nurse Practitioner | DX: G47.33 Obstructive sleep apnea (adult) (pediatric) (principal) | CPT/HCPCS: 95811 ==

== ENCOUNTER 2025-02-01 23:49 | Emergency (ER) | payer OTHER, SELFPAY ==
[2025-02-02] VITALS: BP 152/93; PULSE 80; RESP 18; TEMP 36.4; O2SAT 95
[2025-02-02 00:04] VITALS: PULSE 78; RESP 16; O2SAT 96
--- NOTE | 2025-02-02 00:07 | XRR_ITS ---
PROCEDURE INFORMATION: Exam: XR Right Knee Exam date and time: 02/02/2025 1:11 AM Age: 54 years old Clinical indication: Pain; Knee; Right; Additional info: Pain/swelling TECHNIQUE: Imaging protocol: Radiologic exam of the right knee. Views: 3 views. COMPARISON: No relevant prior studies available. FINDINGS: Bones/joints: Mild tricompartmental joint space narrowing with associated mild osteophyte formation. Peaking of the tibial spines. No definitive large volume joint effusion. No identified fracture or dislocation. Soft tissues: Normal. XR/XR knee RT 3V* [id number] IMPRESSION: Mild right knee degenerative osteoarthritis without visualized acute abnormality.
--- NOTE | 2025-02-02 00:57 | W.ED.EXTPRO ---
Documented by User: IRENA Narvaez 02/02/25 19:52 HPI - Extremity Problem General: Chief complaint: Extremity Injury, Lower Stated complaint: R knee Swollen Pain can't bend or put weight on it Time Seen by Provider: 02/02/25 00:57 Source: patient Mode of arrival: ambulatory Limitations: no limitations History of Present Illness: Patient is a 54-year-old male with past medical history of pseudogout presenting to the emergency department complaining of right knee pain for the past week. Denies any specific injury, states this does not feel like a classical flareup of his pseudogout. Notes that he chronically is taking allopurinol, took some ibuprofen earlier today but states it did not help. Pain reported to be primarily to the medial right knee, nonradiating. States it has gotten so painful to where he cannot walk. He is noting associated redness and swelling to the right knee. No fever, nausea/vomiting, or any other symptoms reported at this time. Vitals within normal limits. MD Complaint: joint swelling and joint pain Onset (ago): week(s) (1) Pain Consistency: constant Location: right and knee Radiation: none Relieving factors: immobilization Exacerbating factors: weight bearing and walking Associated symptoms: Deny chest pain, fever(s) or rash Context: history of gout Related Data Home Medications ?Medication ?Instructions ?Recorded ?Confirmed allopurinol 200 mg tablet 400 mg PO DAILY 02/20/24 01/15/25 magnesium 200 mg tablet 200 mg PO DAILY 09/30/24 01/15/25 sour powell extract 1,000 mg 1,000 mg PO DAILY 09/30/24 01/15/25 capsule (Tart Powell Extract) turmeric (bulk) 95 % powder 1 ea miscellaneous DAILY 09/30/24 01/15/25 (Curcumin) Held on 10/02/24. Instructions: Resume on 10/04/24. duloxetine 20 mg capsule,delayed 20 mg PO BID 01/15/25 01/15/25 release omeprazole 40 mg capsule,delayed 40 mg PO DAILY 01/15/25 01/15/25 release Previous Rx's ?Medication ?Instructions ?Recorded cyclobenzaprine 10 mg tablet 10 mg PO TID PRN muscle spasm 30 12/17/24 days #90 tabs diclofenac sodium 50 mg 50 mg PO BID PRN pain #14 tabs 02/02/25 tablet,delayed release prednisone 20 mg tablet 60 mg (3 x 20 mg) PO DAILY #20 tabs 02/02/25 Allergies Allergy/AdvReac Type Severity Reaction Status Date / Time barium dye Allergy ADR-Nausea Uncoded 02/02/25 00:05 Review of Systems General: Reports: 10 or more systems reviewed and unremarkable except in HPI and below Const: Denies: fever(s) or chills Card: Denies: chest pain Resp: Denies: dyspnea or productive cough GI: Denies: abdominal pain, nausea, vomiting or diarrhea : Denies: flank pain Musc: Reports: joint pain and joint swelling; Denies: neck pain, back pain, extremity pain, extremity swelling, joint redness, joint warmth, limited range of motion or muscle weakness Skin/Breast: Denies: rash Neuro: Denies: headache(s), numbness in extremities or weakness in extremities PFSH ED PFSH: Social History Smoking and tobacco/nicotine status: never used tobacco/nicotine Alcohol intake: current Alcohol intake frequency: few times a month Physical Exam Const: COMMON NORMALS: no acute distress, patient oriented x3, no limitations, healthy appearing, alert and well nourished HENMT: COMMON NORMALS: normocephalic and atraumatic HEAD & SCALP: normocephalic and atraumatic Neck/C-Spine: COMMON NORMALS: full ROM, supple and no meningeal signs Resp: COMMON NORMALS: normal respiratory effort, No use of accessory muscles and clear to auscultation bilaterally AUSCULTATION: clear to auscultation bilaterally Cardio: COMMON NORMALS: regular rate and regular rhythm RATE: regular rate RHYTHM: regular rhythm Extremity: COMMON NORMALS: normal to inspection, capillary refill normal, no joint enlargement and no clubbing, cyanosis or edema NARRATIVE EXTREMITY EXAM: Range of motion limited secondary to pain at the right knee. No obvious swelling of the right knee. No redness, mild warmth when compared to the left knee. Tender to palpation of medial right knee. No joint laxity. No tenderness to the popliteal space. Distal neurovascular exam intact. Neuro: COMMON NORMALS: patient oriented x3, moves all extremities, no focal motor deficits and no sensory deficits noted SENSORIUM/ORIENTATION: Yes alert MENINGEAL SIGNS: Yes no meningeal signs Skin: COMMON NORMALS: no rashes or lesions noted GENERAL SKIN EXAM: no rashes or lesions noted Course Vital Signs: Vital signs: Vital Signs Temperature 97.5 F L 02/02/25 00:00 Pulse Rate 78 02/02/25 00:04 Respiratory Rate 16 02/02/25 00:04 Blood Pressure 152/93 02/02/25 00:00 Pulse Oximetry 96 02/02/25 00:04 MDM - Extremity (Nontraumatic) Lab Data Radiology Impressions Knee X-Ray 02/02/25 00:07 IMPRESSION: Mild right knee degenerative osteoarthritis without visualized acute abnormality. All radiology interpretation(s) finalized by discharge Discharge Plan Discharge Patient Disposition: Home Clinical Impression: Acute knee pain Condition: Stable Prescriptions: New prednisone 20 mg tablet 60 mg PO DAILY Qty: 20 0RF Rx Instructions: 3 tabs (60 mg) x 3 days. 2 tabs (40 mg) x 3 days. 1 tab (20 mg) x 3 days. 1/2 tab (10 mg) x 4 days diclofenac sodium 50 mg tablet,delayed release (DR/EC) 50 mg PO BID PRN (Reason: pain) Qty: 14 0RF No Action magnesium 200 mg tablet 200 mg PO DAILY Curcumin 95 % powder 1 ea miscellaneous DAILY Tart Powell Extract 1,000 mg capsule 1,000 mg PO DAILY cyclobenzaprine 10 mg tablet 10 mg PO TID PRN (Reason: muscle spasm) 30 Days Qty: 90 3RF omeprazole 40 mg capsule,delayed release(DR/EC) 40 mg PO DAILY duloxetine 20 mg capsule,delayed release(DR/EC) 20 mg PO BID allopurinol 200 mg Tablet 400 mg PO DAILY Discharge Orders: Discharge ED (Routine); Ordered 02/02/25 Ordered By: Ivory Urbano Referrals: Kimberlee Davila FNP [Primary Care Provider] - Discharge Diet: Usual diet Discharge Activity: Increase activity as tolerated Patient Instructions: Opioid Safety, Pain Management Activity Restrictions/Additional Instructions: Thank you for choosing [facility] for your healthcare needs today. Please realize this is an emergency room and that we are providing you with a medical screening exam and this may not be complete and all inclusive of all the testing and or work up that you may need to determine your ailment or severity of your illness. You have been screened and evaluated and felt safe for discharge. Health conditions do change or evolve sometimes and as such it is important that you follow up with your Primary Doctor to be re checked, 3-5 days is a general good time frame for follow up. You are always welcome to return to the ED for re assessment if your symptoms are worsening or you have new concerns Print Language: Guatemalan Coding Level of Care Code ED End Worker for Chg Fwd Documented by User: Ivory Urbano MD 02/02/25 01:30 HPI - Extremity Problem General: Chief complaint: Extremity Injury, Lower Stated complaint: R knee Swollen Pain can't bend or put weight on it Time Seen by Provider: 02/02/25 00:57 Related Data Home Medications ?Medication ?Instructions ?Recorded ?Confirmed allopurinol 200 mg tablet 400 mg PO DAILY 02/20/24 01/15/25 magnesium 200 mg tablet 200 mg PO DAILY 09/30/24 01/15/25 sour powell extract 1,000 mg 1,000 mg PO DAILY 09/30/24 01/15/25 capsule (Tart Powell Extract) turmeric (bulk) 95 % powder 1 ea miscellaneous DAILY 09/30/24 01/15/25 (Curcumin) Held on 10/02/24. Instructions: Resume on 10/04/24. duloxetine 20 mg capsule,delayed 20 mg PO BID 01/15/25 01/15/25 release omeprazole 40 mg capsule,delayed 40 mg PO DAILY 01/15/25 01/15/25 release Previous Rx's ?Medication ?Instructions ?Recorded cyclobenzaprine 10 mg tablet 10 mg PO TID PRN muscle spasm 30 12/17/24 days #90 tabs diclofenac sodium 50 mg 50 mg PO BID PRN pain #14 tabs 02/02/25 tablet,delayed release prednisone 20 mg tablet 60 mg (3 x 20 mg) PO DAILY #20 tabs 02/02/25 Allergies Allergy/AdvReac Type Severity Reaction Status Date / Time barium dye Allergy ADR-Nausea Uncoded 02/02/25 00:05 [facility] ED PFSH: Social History Smoking and tobacco/nicotine status: never used tobacco/nicotine Alcohol intake: current Alcohol intake frequency: few times a month Course Vital Signs: Vital signs: Vital Signs Temperature 97.5 F L 02/02/25 00:00 Pulse Rate 78 02/02/25 00:04 Respiratory Rate 16 02/02/25 00:04 Blood Pressure 152/93 02/02/25 00:00 Pulse Oximetry 96 02/02/25 00:04 MDM - Extremity (Nontraumatic) Medical Decision Making X-ray of the knee shows no acute process. Treating for pseudogout here. Placing on some steroids. Assessment and plan: Knee pain ? IM Decadron and a Cambria in the emergency room. - Discharged home - Discussed plan with patient. Answered any questions. - Evaluation and treatment of this problem were appropriate in the emergency setting. Lab Data Radiology Impressions Knee X-Ray 02/02/25 00:07 IMPRESSION: Mild right knee degenerative osteoarthritis without visualized acute abnormality. Discharge Plan Discharge Patient Disposition: Home Clinical Impression: Acute knee pain Condition: Stable Prescriptions: New prednisone 20 mg tablet 60 mg PO DAILY Qty: 20 0RF Rx Instructions: 3 tabs (60 mg) x 3 days. 2 tabs (40 mg) x 3 days. 1 tab (20 mg) x 3 days. 1/2 tab (10 mg) x 4 days diclofenac sodium 50 mg tablet,delayed release (DR/EC) 50 mg PO BID PRN (Reason: pain) Qty: 14 0RF No Action magnesium 200 mg tablet 200 mg PO DAILY Curcumin 95 % powder 1 ea miscellaneous DAILY Tart Powell Extract 1,000 mg capsule 1,000 mg PO DAILY cyclobenzaprine 10 mg tablet 10 mg PO TID PRN (Reason: muscle spasm) 30 Days Qty: 90 3RF omeprazole 40 mg capsule,delayed release(DR/EC) 40 mg PO DAILY duloxetine 20 mg capsule,delayed release(DR/EC) 20 mg PO BID allopurinol 200 mg Tablet 400 mg PO DAILY Discharge Orders: Discharge ED (Routine); Ordered 02/02/25 Ordered By: Ivory Urbano Referrals: Davila,Kimberlee R, DIRECTOR OF AGRICULTURE [Primary Care Provider] - Discharge Diet: Usual diet Discharge Activity: Increase activity as tolerated Patient Instructions: Opioid Safety, Pain Management Activity Restrictions/Additional Instructions: Thank you for choosing [facility] for your healthcare needs today. Please realize this is an emergency room and that we are providing you with a medical screening exam and this may not be complete and all inclusive of all the testing and or work up that you may need to determine your ailment or severity of your illness. You have been screened and evaluated and felt safe for discharge. Health conditions do change or evolve sometimes and as such it is important that you follow up with your Primary Doctor to be re checked, 3-5 days is a general good time frame for follow up. You are always welcome to return to the ED for re assessment if your symptoms are worsening or you have new concerns Print Language: Guatemalan Coding Level of Care Code ED End Worker for Terence Villanueva
[2025-02-02] MEDS: dexamethasone 10 mg/mL INJ IM (01:38)
== END 2025-02-02 02:01 | disposition home or self-care (01) ==
PROVIDERS: Emergency Provider Emergency Medicine; PCP Nurse Practitioner
DX: M25.561 Pain in right knee (principal)
CPT/HCPCS: 73562; 96372; 99284; J1100

== ENCOUNTER 2025-02-05 06:29 | Day surgery (SDC) | payer OTHER, SELFPAY ==
[2025-02-05] VITALS (13 sets, daily range): BP systolic 117–173; BP diastolic 83–125; PULSE 80–97; RESP 16–17; TEMP 36.3; O2SAT 93–97; BMI 38.6
[2025-02-05] MEDS: sodium chloride 0.9% 1,000 ML 30 ML IV (06:50)
--- NOTE | 2025-02-05 07:59 | ANES.PREANE2 ---
Pre-Anesthetic Assessment Height/Weight: Height 1.8 m Weight 125.645 kg Temp Pulse Resp BP Pulse Ox O2 Del Method 97.4 F L 92 17 152/95 96 Room Air 02/05/25 06:46 02/05/25 06:46 02/05/25 06:46 02/05/25 06:46 02/05/25 06:46 02/05/25 06:46 Preop Diagnosis: Lumbar stenosis with neurogenic claudication Operation Date: 02/05/25 08:35 Proposed Procedures p Lumbar Decompression(Not Applicable) - Brayan Yap, DO Familial anesthetic complications: Took awhile to wake up with last surgery Was Beta Chester taken within 24 hours: N/A Was Clonidine taken within 24 hours: N/A Last intake: Intake Last Liquid Date 02/04/25 Last Liquid Time 23:00 Last Solid Date 02/04/25 Last Solid Time 21:00 Social No alcohol and No tobacco Exam alert, oriented x 3, clear to auscultation bilaterally and regular rate & rhythm Airway Mallampati: Class II Dentition: full Pulmonary Sleep Apnea GI Gastroesophageal Reflux Disease Metabolic Morbid Obesity Anesthetic Plan ASA status: 3 Anesthesia: General Risk of > 500 ml blood loss (7ml/kg in children): No Medications/Allergies Home Medications ?Medication ?Instructions ?Recorded ?Confirmed ?Last Taken ?Type allopurinol 200 mg tablet 400 mg PO DAILY 02/20/24 02/04/25 02/04/25 History sour powell extract 1,000 mg 1,000 mg PO DAILY 09/30/24 02/04/25 02/04/25 History capsule (Tart Powell Extract) cyclobenzaprine 10 mg tablet 10 mg PO TID PRN muscle spasm 30 12/17/24 02/04/25 02/04/25 Rx days #90 tabs duloxetine 20 mg capsule,delayed 20 mg PO BID 01/15/25 02/04/25 02/04/25 History release omeprazole 40 mg capsule,delayed 40 mg PO DAILY 01/15/25 02/04/25 02/04/25 History release diclofenac sodium 50 mg 50 mg PO BID PRN pain #14 tabs 02/02/25 02/04/25 02/04/25 Rx tablet,delayed release prednisone 20 mg tablet 60 mg (3 x 20 mg) PO DAILY #20 tabs 02/02/25 02/04/2525 Rx Allergies Allergy/AdvReac Type Severity Reaction Status Date / Time barium dye Allergy ADR-Nausea Uncoded 02/04/25 09:59 [facility] Anesthesia Social History Smoking and tobacco/nicotine status: never used tobacco/nicotine Alcohol intake: current Alcohol intake frequency: few times a month Data Anesthesia Cardiac Studies: No Data to Display
--- NOTE | 2025-02-05 08:14 | W.PM.OPSFHP ---
Same Day Surgery H&P Indication for Procedure/HPI DATE OF PROCEDURE: February 05, 2025 CHIEF COMPLAINT/INDICATIONFOR SURGICAL PROCEDURE: Back and left leg pain PREOP DIAGNOSIS: Lumbar stenosis with neurogenic claudication PLANNED PROCEDURE: Operation Date: 02/05/25 08:35 Proposed Procedures p Lumbar Decompression(Not Applicable) - Brayan Yap, DO Medications/Allergies* Home Medications ?Medication ?Instructions ?Recorded ?Confirmed ?Type allopurinol 200 mg tablet 400 mg PO DAILY 02/20/24 02/04/25 History sour powell extract 1,000 mg 1,000 mg PO DAILY 09/30/24 02/04/25 History capsule (Tart Powell Extract) duloxetine 20 mg capsule,delayed 20 mg PO BID 01/15/25 02/04/25 History release omeprazole 40 mg capsule,delayed 40 mg PO DAILY 01/15/25 02/04/25 History release Allergies/Adverse Reactions Allergy/AdvReac Type Severity Reaction Status Date / Time barium dye Allergy ADR-Nausea Uncoded 02/04/25 09:59 Pertinent History/Comorbid Conditions* Social History Smoking and tobacco/nicotine status: never used tobacco/nicotine Alcohol intake: current Alcohol intake frequency: few times a month Pertinent Exam Findings alert, oriented x 3 and procedure specific exam findings Recommendations Surgery/Procedure today Coding Level of Care Code Acute Code for Chg Fwd
[2025-02-05] MEDS: ceFAZolin 3,000 MG in sodium chloride 0.9% (plus) 100 ML 200 MG IV (08:53)
[2025-02-05] MEDS: lidocaine-epi 1% 20 mL INJ INJECTION (09:11)
[2025-02-05] MEDS: labetalol 5 mg/mL SDV 20mL 10 MG IVP (10:17)
--- NOTE | 2025-02-05 10:17 | PM.OP ---
Operative Report Date of procedure: February 05, 2025 Pre-op diagnosis: Lumbar stenosis with neurogenic claudication Post-op diagnosis: same Procedure done: 1. L4-5 laminectomy with partial facetectomy 2. L5-S1 laminectomy with partial facetectomy Surgeon: Brayan Yap DO Estimated blood loss (mL): 10 Procedure: 1. L4-5 laminectomy with partial facetectomy 2. L5-S1 laminectomy with partial facetectomy Patient is brought to the operative suite. After undergoing anesthesia they are placed in the prone position. All areas of impingement are well padded. Patient is then prepped and draped in the normal sterile fashion. A skin incision is made over the L4/5 level. This is confirmed under c-arm guidance. A series of dilators are passed and the tubular retractor is docked on the L4 lamina. A bovie is used to clear the soft tissue off the lamina and the L 4/5 facet joint. A high speed katy is then used to perform the laminectomy and take down the medial aspect of the L 4/5 facet joint. A kerrison rongeure was then used to take down the remaining lamina and smooth the edge of the laminectomy up to the point where the ligamentum flavum attaches. Attention was then brought to the medial aspect of the facet joint. The remaining medial aspect of the superior and inferior aspect of the facet joint were taken down with the kerrison from the pedicle of L4 to L 5. The facet joint had significant hypertrophy. Attention was then brought to the Ligamentum Flavum. The ligament was taken down from the lamina of L4 to L5 and out medially to the remaining facet joint. The ligament was thick. The dura was then exposed. The dura was in good repair. The L4 nerve was then traced with a curette out the L4/5 foramen and found to be adequately decompressed. The L5 nerve was traced with a curette around the L5 pedicle. The lateral recess was opened with a kerrison helping to further decompress the L5 nerve. Wound is then irrigated copiously with saline and surgiflo is used to stop any bleeding. The tubular retractor is removed and the A skin incision is made over the L5/S1 level. This is confirmed under c-arm guidance. A series of dilators are passed and the tubular retractor is docked on the L5 lamina. A bovie is used to clear the soft tissue off the lamina and the L 5/S1 facet joint. A high speed katy is then used to perform the laminectomy and take down the medial aspect of the L 5/S1 facet joint. A kerrison rongeure was then used to take down the remaining lamina and smooth the edge of the laminectomy up to the point where the ligamentum flavum attaches. Attention was then brought to the medial aspect of the facet joint. The remaining medial aspect of the superior and inferior aspect of the facet joint were taken down with the kerrison from the pedicle of L5 to S1. The facet joint had significant hypertrophy. Attention was then brought to the Ligamentum Flavum. The ligament was taken down from the lamina of L5 to S1 and out medially to the remaining facet joint. The ligament was thick. The dura was then exposed. The dura was in good repair. The L5/S1 nerve was then traced with a curette out the L5/S1 foramen and found to be adequately decompressed. The S1 nerve was traced with a curette around the S1 pedicle. The lateral recess was opened with a kerrison helping to further decompress the S1 nerve. Wound is then irrigated copiously with saline and surgiflo is used to stop any bleeding. The tubular retractor is removed and the wound is closed with vicryl and monocryl suture. Glue is then used to protect the wound. A sterile dressing is then placed. Patient was then placed in the supine position and transferred to the PACU in stable condition.
--- NOTE | 2025-02-05 12:49 | ANE.PACU2 ---
Inpatient post-anesthesia follow up: Airway intact: Yes Vital signs: Temperature 97.3 F Pulse Rate 88 Respiratory Rate 17 Blood Pressure 139/83 Pulse Oximetry 96 Oxygen Delivery Me thod Nasal Cannula Oxygen Flow Rate 1 Fraction of Inspir ed Oxygen Hydration adequate: Yes Pain level: 1 Mental status: Baseline
--- NOTE | 2025-02-05 13:19 | XR_ITS ---
WS: [id number] Lumbar spine, C-arm fluoroscopy views, 02/05/2025 Clinical Data: or pic Comparison: Lumbar spine, 12/17/2024 Findings: Dr. Yap performed a lumbar decompression. XR/XR lumbar spine 1V [id number] Impression: Lumbar decompression.
== END 2025-02-05 11:20 | disposition home or self-care (01) ==
PROVIDERS: PCP Nurse Practitioner; Visit Provider Orthopaedic Surgery
PROC: (CPT 63005; principal; 2025-02-05 08:25)
DX: M48.062 Spinal stenosis, lumbar region with neurogenic claudication (principal); K21.9 Gastro-esophageal reflux disease without esophagitis; Z79.899 Other long term (current) drug therapy; Z91.041 Radiographic dye allergy status; E66.01 Morbid (severe) obesity due to excess calories; Z68.38 Body mass index [BMI] 38.0-38.9, adult
CPT/HCPCS: 63047; 63048; 72020; 76000; J0690; J1100; J2405; J2704; J3010; J3490; J7030

== ENCOUNTER → 2025-02-23 07:50 | Outpatient (BNVA) | payer OTHER, SELFPAY | PROVIDERS: PCP Nurse Practitioner; Visit Provider Orthopaedic Surgery | DX: Z98.890 Other specified postprocedural states (principal) | CPT/HCPCS: 99024 ==

== ENCOUNTER 2025-03-29 04:31 | Emergency (ER) | payer OTHER, SELFPAY ==
[2025-03-29 04:33] VITALS: BP 138/82; PULSE 100; RESP 16; TEMP 36; O2SAT 100; BMI 38.7
--- NOTE | 2025-03-29 05:37 | XRR_ITS ---
PROCEDURE INFORMATION: Exam: XR Left Knee Exam date and time: 03/29/2025 6:08 AM Age: 54 years old Clinical indication: Pain; Knee; Left TECHNIQUE: Imaging protocol: Radiologic exam of the left knee. Views: 3 views. COMPARISON: CR XR knees AP WB w LT lmt ORTH 04/02/2024 8:43 AM FINDINGS: Bones/joints: No evidence of acute fracture or dislocation. At least moderate left knee arthrosis with joint space narrowing and marginal hypertrophic bony spurring most greatly affecting the patellofemoral and medial compartments. Suprapatellar left knee effusion. Soft tissues: No significant soft tissue abnormalities. XR/XR knee LT 3V* [id number] IMPRESSION: Left knee arthrosis most greatly affecting the medial and patellofemoral compartments with suprapatellar effusion.
--- NOTE | 2025-03-29 05:37 | XRR_ITS ---
PROCEDURE INFORMATION: Exam: XR Right Knee Exam date and time: 03/29/2025 6:05 AM Age: 54 years old Clinical indication: Pain; Knee; Right TECHNIQUE: Imaging protocol: Radiologic exam of the right knee. Views: 3 views. COMPARISON: CR (LOW EXM, ) 02/02/2025 1:11 AM FINDINGS: Bones/joints: No evidence of acute fracture or dislocation. Moderate tricompartmental right knee arthrosis with joint space narrowing and marginal hypertrophic bony spurring. Suspected small suprapatellar right knee effusion. Soft tissues: No significant soft tissue abnormalities. XR/XR knee RT 3V* [id number] IMPRESSION: Tricompartmental right knee arthrosis with suspected small suprapatellar effusion.
--- NOTE | 2025-03-29 05:47 | ED_ITS ---
HPI - Extremity Problem 2 General: Chief complaint: Extremity Problem,Nontraumatic Stated complaint: Both Knees hurt Time Seen by Provider: 03/29/25 05:35 History of Present Illness: 54-year-old male presents emergency room complaining of bilateral knee pain. No trauma no precipitating injury. He did recently have back surgery and has been walking more now his knees are hurting more Associated symptoms: Deny chest pain, fever(s) or rash Related Data Home Medications ?Medication ?Instructions ?Recorded ?Confirmed allopurinol 200 mg tablet 400 mg PO DAILY 02/20/2412/19 sour powell extract 1,000 mg 1,000 mg PO DAILY 4 02/23/25 capsule (Tart Powell Extract) duloxetine 20 mg capsule,delayed 20 mg PO BID 01/15/25 02/23/25 release omeprazole 40 mg capsule,delayed 40 mg PO DAILY 02/23/25 release Previous Rx's ?Medication ?Instructions ?Recorded cyclobenzaprine 10 mg tablet 10 mg PO TID PRN muscle s pasm 30 12/17/24 days #90 tabs hydrocodone 5 mg-acetaminophen 325 1 - 2 tab PO .Q4-6H #40 tabs 02/05/25 mg tablet diclofenac sodium 75 mg 75 mg PO Q12H PRN pain #20 t abs 03/29/25 tablet,delayed release Allergies Allergy/AdvReac Type Severity Reaction Status Date / Time barium dye Allergy ADR-Nausea Uncoded 02/23/25 08:18 Review of Systems 2 Const: Denies: fever(s) or chills Card: Denies: chest pain Resp: Denies: dyspnea GI: Denies: abdominal pain : Denies: dysuria, urinary frequency or urinary urgency Musc: Reports: joint pain; Denies: neck pain or back pain Skin/Breast: Denies: rash PFSH ED 2 PFSH: Social History Smoking and tobacco/nicotine status: never used tobacco/nicotine Alcohol intake: current Alcohol intake frequency: few times a month Physical Exam 2 Const: GENERAL APPEARANCE: cooperative ORIENTATION/CONSCIOUSNESS: Yes awake, Yes oriented to person, Yes oriented to place and Yes oriented to time HENMT: COMMON NORMALS: normocephalic, atraumatic and hearing grossly normal bilaterally HEAD & SCALP: normocephalic and atraumatic Resp: COMMON NORMALS: normal respiratory effort and No use of accessory muscles Extremity: COMMON NORMALS: normal to inspection, capillary refill normal, no clubbing, cyanosis or edema, no calf tenderness and no pedal edema OTHER: Examination of the knees. Minimal joint effusion. No redness no erythema is not warm to the touch drawer and Ifeanyi's tests are negative. No deformity no swelling no lacerations. Neuro: SENSORIUM/ORIENTATION: Yes oriented to person, Yes oriented to place and Yes oriented to time Skin: COMMON NORMALS: no rashes or lesions noted GENERAL SKIN EXAM: no rashes or lesions noted Course 2 Vital Signs: Vital signs: Vital Signs Temperature 96.8 F L 03/29/25 04:33 Pulse Rate 66 03/29/25 07:17 Respiratory Rate 16 03/29/25 04:33 Blood Pressure 134/90 03/29/25 07:17 Pulse Oximetry 92 03/29/25 07:17 Oxygen Delivery Me thod Room Air 03/29/25 04:33 MDM - Extremity (Nontraumatic) Medical Decision Making X-ray did not show any acute fracture on exam there is no sign of acute gout I think this is more osteoarthritis increased use patient reported that he had increased his walking since his back surgery and he was feeling somewhat better. Started him on anti-inflammatory refer to orthopedics Medical Records I reviewed the patient's medical records. Lab Data I reviewed the patient's lab results. 03/29/25 05:55 03/29/25 05:55 Radiology Impressions Knee X-Ray 03/29/25 05:37 IMPRESSION: Left knee arthrosis most greatly affecting the medial and patellofemoral compartments with suprapatellar effusion. Laboratory Results WBC 5.54 10^3/uL (3.29-11.43) 03/29/25 05:55 RBC 4.85 10^6/uL (3.85-5.65) 03/29/25 05:55 Hgb 13.50 g/dL (11.27-16.99) 03/29/25 05:55 Hct 42.8 % (37-53) 03/29/25 05:55 MCV 88.2 fl (82-101) 03/29/25 05:55 MCH 27.8 pg (27-33) 03/29/25 05:55 MCHC 31.5 g/dL (30-55) 03/29/25 05:55 RDW 15.3 % (12.1-15.1) H 03/29/25 05:55 Plt Count 180 10^3/cmm (157-399) 03/29/25 05:55 MPV 10.2 fL (7.4-10.4) 03/29/25 05:55 Neut % (Auto) 59.4 % 03/29/25 05:55 Lymph % (Auto) 26.2 % 03/29/25 05:55 [place] % (Auto) 8.5 % 03/29/25 05:55 Eos % (Auto) 4.7 % 03/29/25 05:55 Baso % (Auto) 0.5 % 03/29/25 05:55 Neut # (Auto) 3.29 10^3/uL (1.8-7.7) 03/29/25 05:55 Lymph # (Auto) 1.5 10^3/uL (0.8-4.8) 03/29/25 05:55 [place] # (Auto) 0.5 10^3/uL (0.2-0.9) 03/29/25 05:55 Eos # (Auto) 0.3 10^3/uL (0.0-0.8) 03/29/25 05:55 Baso # (Auto) 0.0 10^3/uL (0.0-0.1) 03/29/25 05:55 Nucleated RBC % (auto) 0 % 03/29/25 05:55 Nucleated RBCs # 0.0 /100WBC 03/29/25 05:55 Sodium 138 mmol/L (136-145) 03/29/25 05:55 Potassium 4.0 mmol/L (3.5-5.1) 03/29/25 05:55 Chloride 99 mmol/L (98-107) 03/29/25 05:55 Carbon Dioxide 29 mmol/L (22-29) 03/29/25 05:55 Anion Gap 14.0 (5-19) 03/29/25 05:55 BUN 10 mg/dL (6-20) 03/29/25 05:55 Creatinine 0.6 mg/dL (0.7-1.2) L 03/29/25 05:55 GFR Calculation 139.9 mL/min (90-130) H 03/29/25 05:55 Glucose 194 mg/dL (65-115) H 03/29/25 05:55 Calculated Osmolality 290 mOsm/kg (285-295) 03/29/25 05:55 Calcium 9.3 mg/dL (8.5-10.5) 03/29/25 05:55 Total Bilirubin 0.6 mg/dL (0.15-1.2) 03/29/25 05:55 AST 16 U/L (0-40) 03/29/25 05:55 ALT 30 U/L (0-41) 03/29/25 05:55 Alkaline Phosphatase 94 U/L (40-130) 03/29/25 05:55 C-Reactive Protein 35.7 mg/L (0.0-4.9) H 03/29/25 05:55 Total Protein 7.7 g/dL (6.6-8.7) 03/29/25 05:55 Albumin 4.1 g/dL (3.5-5.2) 03/29/25 05:55 Globulin 3.6 g/dL (1.3-4.6) 03/29/25 05:55 All radiology interpretation(s) finalized by discharge Discharge Plan Discharge Patient Disposition: Home Clinical Impression: Osteoarthritis of knees, bilateral Condition: Stable Prescriptions: New diclofenac sodium 75 mg tablet,delayed release (DR/EC) 75 mg PO Q12H PRN (Reason: pain) Qty: 20 0RF Discontinued prednisone 20 mg tablet 60 mg PO DAILY Qty: 20 0RF Rx Instructions: 3 tabs (60 mg) x 3 days. 2 tabs (40 mg) x 3 days. 1 tab (20 mg) x 3 days. 1/2 tab (10 mg) x 4 days diclofenac sodium 50 mg tablet,delayed release (DR/EC) 50 mg PO BID PRN (Reason: pain) Qty: 14 0RF No Action Tart Powell Extract 1,000 mg capsule 1,000 mg PO DAILY cyclobenzaprine 10 mg tablet 10 mg PO TID PRN (Reason: muscle spasm) 30 Days Qty: 90 3RF omeprazole 40 mg capsule,delayed release(DR/EC) 40 mg PO DAILY duloxetine 20 mg capsule,delayed release(DR/EC) 20 mg PO BID allopurinol 200 mg Tablet 400 mg PO DAILY hydrocodone-acetaminophen 5-325 mg tablet 1 - 2 tab PO .Q4-6H Qty: 40 0RF Discharge Orders: Discharge ED (Routine); Ordered 03/29/25 Ordered By: Juvencio Varma Referrals: Kimberlee Davila, [facility]ARPER [Primary Care Provider, Nurse Practitioner] Discharge Diet: Usual diet Discharge Activity: Increase activity as tolerated Patient Instructions: Opioid Safety, Pain Management Activity Restrictions/Additional Instructions: [facility]. It is very important that you follow up as instructed or that you return to the Emergency Department should you have concerns or if your condition changes or worsens in any way. You were seen in the emergency room with complaints of bilateral knee pain x- rays show osteoarthritic changes. Based on your exam and your labs did not appear to have any gout at this time. Will start you on an anti-inflammatory and have you follow-up with orthopedics. case management will make an appointment for you. Print Language: Khmer Coding Level of Care Code ED Composite Laminator for Terence Villanueva
[2025-03-29 06:03] LABS: Basophils % 0.5 %; Eosinophils # 0.3 10^3/uL (0.0-0.8); Eosinophils % 4.7 %; Hematocrit 42.8 % (37-53); Lymphocytes # 1.5 10^3/uL (0.8-4.8); Lymphocytes % 26.2 %; Mean Corpuscular HGB Conc 31.5 g/dL (30-55); Mean Corpuscular Hemoglobin 27.8 pg (27-33); Mean Corpuscular Volume 88.2 fl (82-101); Mean Platelet Volume 10.2 fL (7.4-10.4); Monocytes # 0.5 10^3/uL (0.2-0.9); Monocytes % 8.5 %; Neutrophils # 3.29 10^3/uL (1.8-7.7); Neutrophils % 59.4 %; Nucleated Red Blood Cells % 0 %; Platelet Count 180 10^3/cmm (157-399); Red Blood Count 4.85 10^6/uL (3.85-5.65); Red Cell Distribution Width 15.3 % (12.1-15.1); White Blood Count 5.54 10^3/uL (3.29-11.43)
[2025-03-29 06:19] LABS: Alanine Aminotransferase 30 U/L (0-41); Albumin Level 4.1 g/dL (3.5-5.2); Alkaline Phosphatase 94 U/L (40-130); Aspartate Amino Transferase 16 U/L (0-40); Blood Urea Nitrogen 10 mg/dL (6-20); C Reactive Protein 35.7 mg/L (0.0-4.9); Calcium 9.3 mg/dL (8.5-10.5); Carbon Dioxide 29 mmol/L (22-29); Chloride 99 mmol/L (98-107); Creatinine Clr Calc Pharmacy 188.1404; Globulin 3.6 g/dL (1.3-4.6); Glomerular Filtration Rate 139.9 mL/min (90-130); Glucose 194 mg/dL (65-115); Osmolality Calculated 290 mOsm/kg (285-295); Sodium 138 mmol/L (136-145); Total Bilirubin 0.6 mg/dL (0.15-1.2); Total Protein 7.7 g/dL (6.6-8.7)
[2025-03-29] MEDS: ketorolac 30 mg/mL INJ IVP (07:07)
[2025-03-29 07:17] VITALS: BP 134/90; PULSE 66; O2SAT 92
--- NOTE | 2025-03-29 09:52 | DCPLANNER ---
messaged ortho for er f/u
== END 2025-03-29 07:18 | disposition home or self-care (01) ==
PROVIDERS: Emergency Provider Family Medicine; PCP Nurse Practitioner
DX: M17.0 Bilateral primary osteoarthritis of knee (principal)
CPT/HCPCS: 36415; 73562; 80053; 85025; 86140; 96374; 99284; J1885

== ENCOUNTER → 2025-04-23 07:48 | Outpatient (BNVA) | payer OTHER, SELFPAY | PROVIDERS: PCP Nurse Practitioner; Visit Provider Physician Assistant | DX: M17.0 Bilateral primary osteoarthritis of knee (principal) | CPT/HCPCS: 73560; 73565 ==

== ENCOUNTER 2025-04-23 09:11 | Outpatient (CLI) | payer OTHER, SELFPAY | END 2025-04-23 09:12 | disposition home or self-care (01) | LOC: SPT 09:12 | PROVIDERS: PCP Nurse Practitioner; Visit Provider Physician Assistant | DX: Z46.89 Encounter for fitting and adjustment of other specified devices (principal); M17.0 Bilateral primary osteoarthritis of knee | CPT/HCPCS: 99213; L1812 ==

== ENCOUNTER → 2025-04-29 14:39 | Outpatient (BNVA) | payer OTHER, SELFPAY | PROVIDERS: PCP Nurse Practitioner; Visit Provider Orthopaedic Surgery | DX: Z98.890 Other specified postprocedural states (principal); M54.9 Dorsalgia, unspecified | CPT/HCPCS: 72100; 99024 ==

== ENCOUNTER → 2025-05-05 08:00 | Outpatient (BNVA) | payer OTHER, SELFPAY | PROVIDERS: PCP Nurse Practitioner; Visit Provider Physician Assistant | DX: M17.0 Bilateral primary osteoarthritis of knee (principal); Z71.89 Other specified counseling | CPT/HCPCS: 20610; 99213; J7318 ==

== ENCOUNTER → 2025-07-01 08:13 | Outpatient (BNVA) | payer OTHER, SELFPAY | PROVIDERS: PCP Nurse Practitioner; Visit Provider Orthopaedic Surgery | DX: Z98.890 Other specified postprocedural states (principal); M54.9 Dorsalgia, unspecified | CPT/HCPCS: 72100; 99213 ==

== ENCOUNTER 2025-07-15 07:27 | Outpatient (CLI) | payer OTHER, SELFPAY ==
--- NOTE | 2025-07-15 08:00 | MR_ITS ---
WS: [id number] MRI LUMBAR SPINE NONCONTRAST TECHNIQUE: Sagittal T1, T2 and STIR imaging. Axial T1 and T2 imaging. CLINICAL INFORMATION: Back Pain COMPARISON: 12/23/2024 FINDINGS: Some images degraded by motion Postoperative changes hemilaminectomies L4-L5 and L5-S1 appear new from previous Mild central canal stenosis in the cervical spine supervisor inspection and testing imaging. A few shallow disc protrusions in the mid thoracic spine. L1-L2: Mild facet arthropathy. Slight narrowing of the subarticular recess. Spinal canal and foramen are patent. L2-L3: Mild annular bulging. Narrowing of the subarticular recess bilaterally. Mild facet arthropathy. LEFT foraminal protrusion with mild LEFT foraminal narrowing and slight contact of the exiting LEFT L2 nerve root. L3-L4: Central disc bulging with moderate central canal stenosis. Impingement of the subarticular recess. Moderate facet arthropathy. Central canal stenosis appears slightly progressed at this level. Bilateral foraminal protrusions with mild bilateral foraminal narrowing also appears progressed. Moderate facet arthropathy. L4-L5: LEFT hemilaminectomy. Mild disc bulging with narrowing of the subarticular recess bilaterally. Mild residual improved central canal stenosis. Mild RIGHT greater than LEFT foraminal narrowing. L5-S1: Central disc protrusion slightly impinges the traversing S1 nerve roots bilaterally. Moderate facet arthropathy. LEFT hemilaminectomy. Bilateral foraminal protrusions with moderate to severe bilateral foraminal narrowing this is similar to previous. Visualized pelvic bony structures: Normal. Paravertebral soft tissues: Normal. MR/MR lumbar spine wo con* [id number] IMPRESSION: 1. Postoperative LEFT L4-5 and LEFT L5-S1 hemilaminectomies new from previous 2. Slightly improved central canal stenosis L4-5 and L5-S1 with mild residual narrowing of the subarticular recess and central canal. 3. Central disc protrusion L3-4 with moderate central canal stenosis appears s lightly progressed with impingement on the subarticular recess bilaterally. 4. Small bilateral foraminal protrusions L3-4 appear progressed. 5. Stable moderate to severe bilateral L5-S1 foraminal narrowing with bilatera l foraminal protrusions. 6. No other significant changes.
== END 2025-07-15 07:28 | disposition home or self-care (01) ==
LOC: RAD 07:27
PROVIDERS: PCP Nurse Practitioner; Visit Provider Orthopaedic Surgery
DX: M47.816 Spondylosis without myelopathy or radiculopathy, lumbar region (principal); M54.9 Dorsalgia, unspecified; M51.26 Other intervertebral disc displacement, lumbar region; M48.061 Spinal stenosis, lumbar region without neurogenic claudication; M51.27 Other intervertebral disc displacement, lumbosacral region; M47.817 Spondylosis without myelopathy or radiculopathy, lumbosacral region; M48.02 Spinal stenosis, cervical region
CPT/HCPCS: 72148

== ENCOUNTER → 2025-07-22 07:42 | Outpatient (BNVA) | payer OTHER, SELFPAY | PROVIDERS: PCP Nurse Practitioner; Visit Provider Orthopaedic Surgery | DX: M54.9 Dorsalgia, unspecified (principal); Z09 Encounter for follow-up examination after completed treatment for conditions other than malignant neoplasm | CPT/HCPCS: 99213 ==

== ENCOUNTER → 2025-11-05 07:57 | Outpatient (BNVA) | payer OTHER, SELFPAY | PROVIDERS: PCP Nurse Practitioner; Visit Provider Physician Assistant | DX: Z71.89 Other specified counseling (principal); M17.0 Bilateral primary osteoarthritis of knee | CPT/HCPCS: 20610; 99213; J7318 ==